=== PATIENT | male | born 1975 | race African-American/Black ===

== ENCOUNTER → 2016-12-16 | Outpatient (CLI) | payer OTHER ==
--- NOTE | 2016-12-16 09:02 | US ---
EXAMINATION TYPE: US liver DATE OF EXAM: 12/16/2016 8:39 AM COMPARISON: 12/05/2014 CLINICAL HISTORY: 41-year-old male B18.2 Hepatitis C. Chronic Hep C, patient has no other complaints at this time. TECHNIQUE: Multiple sonographic images of the right upper quadrant are obtained. FINDINGS: EXAM MEASUREMENTS: Liver Length: 13.7 cm Gallbladder Wall: 0.3 cm CBD: 0.4 cm Right Kidney: 11.4 x 4.5 x 5.7 cm Pancreas: Suboptimal visualization of the pancreatic head and tail secondary to shadowing from bowel gas. Visualized neck and body shows no gross abnormality. Liver: Slight heterogeneous echotexture without focal lesion. Gallbladder: No abnormal gallbladder distention, wall thickening, pericholecystic fluid, or shadowin g calculi. Evidence for sonographic Palomino's sign: No CBD: wnl Right Kidney: No hydronephrosis. IMPRESSION: Slightly heterogeneous liver likely reflects patient's underlying chronic hepatitis C. No sonographic evidence for hepatoma.
== END | disposition home or self-care (01) ==
LOC: RADUSWWP 08:08
PROVIDERS: ATTEND Internal Medicine Gastroenterology
DX: B18.2 Chronic viral hepatitis C (principal)
CPT/HCPCS: 76705

== ENCOUNTER → 2016-12-30 | Outpatient (CLI) | payer OTHER ==
[2016-12-30 12:14] LABS: Basophils # (A) 0.1 k/uL (0-0.2); Basophils % (A) 1 %; CH 33.2; CHCM 34.3; Eosinophils # (A) 0.3 k/uL (0-0.7); Eosinophils % (A) 2 %; HCT 45.7 % (39.0-53.0); HDW 2.51; HGB 15.5 gm/dL (13.0-17.5); Luc # (Auto) 0.29; Luc % (Auto) 3; Lymphocytes % (A) 26 %; MCH 32.8 pg (25.0-35.0); MCHC 33.8 g/dL (31.0-37.0); MCV 97.2 fL (80.0-100.0); Mean Platelet Volume 7.4; Monocytes # (A) 0.8 k/uL (0-1.0); Monocytes % (A) 7 %; Neutrophils # (A) 7.2 k/uL (1.3-7.7); Neutrophils % (A) 62 %; RBC 4.71 m/uL (4.30-5.90); RDW 13.4 % (11.5-15.5); WBC 11.5 k/uL (3.8-10.6); WBC (Perox) 11.34
[2016-12-30 12:15] LABS: INR 1.2 (<1.1); Prothrombin Time 12.2 sec (9.0-12.0)
[2016-12-30 12:51] LABS: Bilirubin, Delta 0.3 mg/dL (0.0-0.2); Total Bilirubin 0.8 mg/dL (0.2-1.3); Total Protein 8.2 g/dL (6.3-8.2)
[2017-01-01 11:53] LABS: HCV Qualitative Result DETECTED (Not detected)
== END | disposition home or self-care (01) ==
LOC: LABWHC1 11:18
PROVIDERS: ATTEND Physician Assistant
DX: B18.2 Chronic viral hepatitis C (principal)
CPT/HCPCS: 36415; 80076; 82105; 85025; 85610; 87522; 87902

== ENCOUNTER 2017-07-05 10:54 | Emergency (ER) | payer OTHER ==
--- NOTE | 2017-07-05 11:42 | XR ---
EXAMINATION TYPE: XR chest 2V DATE OF EXAM: 07/05/2017 COMPARISON: NONE HISTORY: Right-sided chest pain for 2 days. TECHNIQUE: Frontal and lateral views of the chest are obtained. FINDINGS: There is no focal air space opacity, pleural effusion, or pneumothorax seen. The cardiac silhouette size is within normal limits. The osseous structures are intact. IMPRESSION: No acute process.
[2017-07-05] MEDS ORDERED: PROMETHAZ-COD 6.25-10 MG/5 ML 5 ML CUP PO STA (11:45)
[2017-07-05 12:05] VITALS: PULSE 89
--- NOTE | 2017-07-05 12:17 | ED ---
General Adult HPI - General Chief complaint: Upper Respiratory Infection Stated complaint: FLU LIKE SYMPTOMS Time Seen by Provider: 07/05/17 11:18 Source: patient, RN notes reviewed Mode of arrival: ambulatory Limitations: no limitations - History of Present Illness Initial comments: 42-year-old male presents emergency room chief complaint of cough. Patient states he's had a cough for about 4. He is not coughing bouts. Patient states his whole body hurts due to how much she has been coughing. Patient states he is not coughing. There's been no fever or chills. Patient was concerned due to his continued cough so he thought that he should be evaluated. Patient denies any recent fever, chills, shortness of breath, chest pain, back pain, abdominal pain, nausea vomiting, numbness or tingling, dysuria or hematuria, constipation or diarrhea, headaches or visual changes, or any other current symptoms. - Related Data Home Medications Medication Instructions Recorded Confirmed FLUoxetine HCL [PROzac] 40 mg PO DAILY 10/30/14 04/24/16 Albuterol Inhaler [Ventolin Hfa 2 puff INHALATION RT-Q6H PRN 04/24/16 04/24/16 Inhaler] DULoxetine HCL [Cymbalta] 30 mg PO DAILY 04/24/16 04/24/16 Diazepam [Valium] 10 mg PO DAILY PRN 04/24/16 04/24/16 Hydrocodone/Acetaminophen [[place] 1 tab PO Q6H PRN 04/24/16 04/24/16 10-325] Loratadine [Claritin] 10 mg PO DAILY 04/24/16 04/24/16 Metoprolol Succinate (ER) [Toprol 25 mg PO DAILY 04/24/16 04/24/16 XL] Nystatin 100,000Unit/gm Cream 1 applic TOPICAL DAILY 04/24/16 04/24/16 [Mycostatin Cream] OLANZapine [ZyPREXA] 10 mg PO HS 04/24/16 04/24/16 OXcarbazepine [Trileptal] 600 mg PO BID 04/24/16 04/24/16 buPROPion XL [Wellbutrin Xl] 300 mg PO DAILY 04/24/16 04/24/16 Previous Rx's Medication Instructions Recorded Dicyclomine [Bentyl] 20 mg PO QID #20 tablet 04/24/16 Ondansetron Odt [Zofran ODT] 4 mg PO Q8HR PRN #15 tab 04/24/16 Albuterol Inhaler [Ventolin Hfa 1 - 2 puff INHALATION Q4-6H PRN #1 07/05/17 Inhaler] inhaler Promethaz-Cod 6.25-10 mg/5 ml 5 ml PO Q4HR PRN #30 ml 07/05/17 [Phenergan with Codeine] predniSONE 50 mg PO DAILY #5 tab 07/05/17 Allergies Allergy/AdvReac Type Severity Reaction Status Date / Time Penicillins Allergy Anaphylaxis Verified 07/05/17 11:42 Review of Systems ROS Statement: Those systems with pertinent positive or pertinent negative responses have been documented in the HPI. ROS Other: All systems not noted in ROS Statement are negative. Past Medical History Past Medical History: Asthma, Hypertension Additional Past Medical History / Comment(s): diverticulitis and colitis, chronic back pain, hep c History of Any Multi-Drug Resistant Organisms: None Reported Past Surgical History: No Surgical Hx Reported Past Psychological History: No Psychological Hx Reported Smoking Status: Current every day smoker Past Alcohol Use History: None Reported Past Drug Use History: Marijuana General Exam - General Exam Comments Initial Comments: General: The patient is awake and alert, in no distress, and does not appear acutely ill. Eye: Pupils are equal, round and reactive to light, extra-ocular movements are intact; there is normal conjunctiva bilaterally. No signs of icterus. Ears, nose, mouth and throat: There are moist mucous membranes. Neck: The neck is supple, there is no tenderness. Cardiovascular: There is a regular rate and rhythm. No murmur, rub or gallop is appreciated. Respiratory: Lungs are clear to auscultation, respirations are non-labored, breath sounds are equal. No wheezes, stridor, rales, or rhonchi. Gastrointestinal: Soft, non-distended, non-tender abdomen without masses or organomegaly noted. There is no rebound or guarding present. No CVA tenderness. Bowel sounds are unremarkable. Back: There is no tenderness to palpation in the midline. There is no obvious deformity. No rashes noted. Musculoskeletal: Normal ROM, no tenderness, There is no pedal edema. There is no calf tenderness or swelling. Sensation intact. Pulses equal bilaterally 2+. Neurological: CN II-XII intact, There are no obvious motor or sensory deficits. Coordination appears grossly intact. Speech is normal. Skin: Skin is warm and dry and no rashes or lesions are noted. Psychiatric: Cooperative, appropriate mood & affect, normal judgment. Limitations: no limitations Course Vital Signs 07/05/17 07/05/17 11:17 11:24 Temperature 98.7 F Pulse Rate 89 Respiratory 20 20 Rate Blood Pressure 156/98 O2 Sat by Pulse 100 Oximetry Medical Decision Making - Medical Decision Making 42-year-old male presents for appears to be an upper respiratory type infection. Patient continues to have this cough. X-rays reviewed and negative vital signs are stable. This time was a patient steroids and inhaler and cough medication for home. We discussed follow-up return parameters all patient's questions. He stated he understood any significant plan. This time the patient will be discharged home. - Lab Data Lab Results 07/05/17 Range/Units 11:30 Influenza Type A RNA Not Detected (Not Detectd) Influenza Type B (PCR) Not Detected (Not Detectd) - Radiology Data Radiology results: report reviewed, image reviewed Disposition Clinical Impression: Upper respiratory infection Disposition: HOME SELF-CARE Condition: Stable Instructions: Upper Respiratory Infection (ED) Additional Instructions: Please use medication as discussed. Please follow up with family doctor if symptoms have not improved over the next two days. Please return to the emergency room if your symptoms increase or worsen or for any other concerns. Prescriptions: Albuterol Inhaler [Ventolin Hfa Inhaler] 1 - 2 puff INHALATION Q4-6H PRN #1 inhaler PRN Reason: Cough predniSONE 50 mg PO DAILY #5 tab Promethaz-Cod 6.25-10 mg/5 ml [Phenergan with Codeine] 5 ml PO Q4HR PRN #30 ml PRN Reason: Cough Referrals: Kunal Martínez MD [Primary Care Provider] - 1-2 days Time of Disposition: 12:16
[2017-07-05 12:39] VITALS: BP 150/85; RESP 18; TEMP 98.5
== END 2017-07-05 12:40 | disposition home or self-care (01) ==
LOC: EC 10:54
DX: J06.9 Acute upper respiratory infection, unspecified (principal); J45.909 Unspecified asthma, uncomplicated; I10 Essential (primary) hypertension; F17.200 Nicotine dependence, unspecified, uncomplicated; Z79.899 Other long term (current) drug therapy; Z88.0 Allergy status to penicillin
CPT/HCPCS: 71020; 87502; 99283

== ENCOUNTER 2018-01-07 08:00 | Day surgery (SDC) | payer OTHER ==
[2018-01-05 10:31] VITALS: BMI 70.7
[~2018-01-07 08:00] MED LIST: LACTATED RINGERS 1,000 ML IV SCH
[2018-01-07 08:20] VITALS: RESP 16; TEMP 98.4
[2018-01-07] MEDS ORDERED: LIDOCAINE 1% 20 ML VIAL (10MG/ML) FOR IV START INTRADERMA ONE (08:29)
[2018-01-07] MEDS ORDERED: LIDOCAINE 1% INJ 10MG/ML (20 ML MDV) ONE (08:50)
[2018-01-07] MEDS ORDERED: PROPOFOL 10 MG/ML 20 ML VIAL IV ONE (08:50)
--- NOTE | 2018-01-07 08:59 | P.GSHP ---
History of Present Illness H&P Date: 01/07/18 Chief Complaint: GERD, history: Polyps This is a 42-year-old male referred from . Patient presents today for EGD and colonoscopy. He's had history of GERD and colon polyps. Past Medical History Past Medical History: COPD, GERD/Reflux, Hypertension Additional Past Medical History / Comment(s): HX DIVERTICULITIS, COLITIS, DDD, BULDGING DISCS WITH BACK PAIN- USES CANE., HEPATITIS C. History of Any Multi-Drug Resistant Organisms: None Reported Past Surgical History: No Surgical Hx Reported Additional Past Surgical History / Comment(s): COLONOSCOPY Past Anesthesia/Blood Transfusion Reactions: No Reported Reaction Past Psychological History: Anxiety, Bipolar, Depression, Schizophrenia Smoking Status: Former smoker Past Alcohol Use History: None Reported Additional Past Alcohol Use History / Comment(s): QUIT SMOKING 2 MONTHS AGO. SMOKED OVER 20 YEARS. Past Drug Use History: Marijuana Additional Drug Use History / Comment(s): CURRENT MARIJUANA USE. - Past Family History Mother Family Medical History: Cancer Additional Family Medical History / Comment(s): COLON CANCER Medications and Allergies Home Medications Medication Instructions Recorded Confirmed Type FLUoxetine HCL [PROzac] 40 mg PO DAILY 10/30/14 01/07/18 History Hydrocodone/Acetaminophen [[place] 1 tab PO Q6H PRN 04/24/16 01/07/18 History 10-325] Metoprolol Succinate (ER) [Toprol 25 mg PO DAILY 04/24/16 01/07/18 History XL] OXcarbazepine [Trileptal] 600 mg PO BID 04/24/16 01/07/18 History buPROPion XL [Wellbutrin Xl] 300 mg PO DAILY 04/24/16 01/07/18 History Albuterol Inhaler [Ventolin Hfa 1 - 2 puff INHALATION Q4-6H 01/05/18 01/07/18 History Inhaler] OLANZapine [ZyPREXA] 15 mg PO HS 01/05/18 01/07/18 History Allergies Allergy/AdvReac Type Severity Reaction Status Date / Time Penicillins Allergy Anaphylaxis Verified 01/07/18 08:20 Surgical - Exam Vital Signs Temp Pulse Resp BP Pulse Ox 98.4 F 78 16 129/84 95 01/07/18 08:19 01/07/18 08:19 01/07/18 08:19 01/07/18 08:19 01/07/18 08:19 - General well developed, no distress - Eyes PERRL - ENT normal pinna - Neck no masses - Respiratory normal expansion - Cardiovascular Rhythm: regular - Abdomen Abdomen: soft, non tender Assessment and Plan Assessment: GERD, history of colon polyps. We'll perform EGD and colonoscopy
--- NOTE | 2018-01-07 09:18 | P.OP ---
Date of Procedure: 01/07/18 Preoperative Diagnosis: GERD History of colon polyps Postoperative Diagnosis: Antral gastritis Hiatal hernia Esophagitis Normal colon Procedure(s) Performed: EGD Colonoscopy Anesthesia: MAC Surgeon: Sarwat Aguilar Pathology: other (Antrum, esophagus) Condition: stable Disposition: PACU Description of Procedure: T PROCEDURE: The patient was placed on the endoscopy table in the lateral position. Digital rectal examination was performed which revealed no abnormalities. The prostate was symmetrical without nodules. Flexible colonoscope was then placed in the patient's anus and passed throughout the entire colon. The ileocecal valve was visualized. The cecum, ascending, transverse, descending and sigmoid colon were normal. The rectum was normal as well. There were no masses, polyps or diverticula noted in the entire colon. Next, the gastric was placed oropharynx and passed in the esophagus into the stomach. Scope was then placed through the pylorus. The first and second portion of the duodenum appeared normal. Scope was then brought back the antrum and this appeared significantly inflamed and a biopsies performed. The scope was then retroflexed and remainder of the stomach appeared normal. There was a moderate size hiatal hernia. The GE junction was at 38 cm. The distal esophagus was inflamed and a biopsies performed. The proximal esophagus appeared normal. Scope was withdrawn for patient.
[2018-01-07 09:37] VITALS: BP 120/79
[2018-01-07 09:45] VITALS: PULSE 95
[2018-01-07] MEDS ORDERED: ALBUTEROL NEBULIZED 2.5 MG/3 ML INHALATION SCH (12:00)
== END 2018-01-07 09:54 | disposition home or self-care (01) ==
LOC: ORWHC2ENDO 08:00
PROVIDERS: ATTEND Surgery
DX: Z12.11 Encounter for screening for malignant neoplasm of colon (principal); K29.50 Unspecified chronic gastritis without bleeding; K21.0 Gastro-esophageal reflux disease with esophagitis; K44.9 Diaphragmatic hernia without obstruction or gangrene; Z87.19 Personal history of other diseases of the digestive system; Z86.010 Personal history of colon polyps; Z87.891 Personal history of nicotine dependence; J44.9 Chronic obstructive pulmonary disease, unspecified; I10 Essential (primary) hypertension; F41.9 Anxiety disorder, unspecified; F31.9 Bipolar disorder, unspecified; F20.9 Schizophrenia, unspecified; Z79.899 Other long term (current) drug therapy; Z88.0 Allergy status to penicillin
CPT/HCPCS: 94640; 88305; 43239; J2001; J2704; G0105

== ENCOUNTER → 2018-02-02 | Outpatient (CLI) | payer OTHER ==
--- NOTE | 2018-02-02 16:59 | CT ---
EXAMINATION TYPE: CT soft tissue neck w con DATE OF EXAM: 02/02/2018 COMPARISON: NONE HISTORY: Right sided mass above ear marked by BB with tenderness CT DLP: 628.7 mGycm CONTRAST: Patient injected with 100 mL of Isovue 300. TECHNIQUE: Axial images at 3 mm thick sections. Reconstructed images in the coronal plane and sagitt al plane are reviewed. FINDINGS: Limited CT sections are obtained the lung apices. The lung apices appear clear. Osseous s tructures appear unremarkable. At the level marked by the BB posterior to the right ureter is a hypodense structure. This measures a pproximately -40 Hounsfield units. As could be fluid or fat. This area appears to be circumscribed an d measures an estimated 1.1 x 2.2 cm. No enhancement is evident. CT neck: The torus tubarius and fossa of Rosenmuller are normal. Second Helper spaces are normal. Ther e is a very large retention cyst within the inferior right maxillary sinus. Remaining paranasal sinus es appear clear. 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 Mastoid air cells are clear. Parotid glands appear normal and symmetrical. Submandibular glands, are normal. Parapharyngeal spac es are normal. No suspicious adenopathy is evident. The hypopharynx appears within normal limits. Vocal cord level appear symmetrical. Thyroid as visualized is normal. IMPRESSIONS: 1. Cystlike area posterior to the right ear at the area marked by the BB.
== END | disposition home or self-care (01) ==
LOC: RADCTMAIN 15:36
PROVIDERS: ATTEND Family Medicine
DX: R22.1 Localized swelling, mass and lump, neck (principal)
CPT/HCPCS: 70491; Q9967

== ENCOUNTER 2018-02-23 00:51 | Emergency (ER) | payer OTHER ==
[2018-02-23 02:23] LABS: Amphetamine Screen,Urine Not Detected (NotDetected); Barbiturate Screen,Urine Not Detected (NotDetected); Benzodiazepines Screen,Urine Not Detected (NotDetected); Cocaine Screen,Urine Not Detected (NotDetected); Methadone Screen, Urine Not Detected (NotDetected); Opiate Screen,Urine Not Detected (NotDetected); Oxycodone Screen, Urine Not Detected (NotDetected); Phencyclidine Screen,Urine Not Detected (NotDetected); Tricyclic Antidepressant,Urine Not Detected (NotDetected); Urn Cannabinoid Scrn Detected (NotDetected)
[2018-02-23 05:02] VITALS: PULSE 86
--- NOTE | 2018-02-23 05:19 | ED ---
Psych HPI - General Chief Complaint: Psychiatric Symptoms Stated Complaint: suicidal Time Seen by Provider: 02/23/18 01:04 Source: patient Mode of arrival: ambulatory - History of Present Illness MD Complaint: suicidal ideation, feels depressed -: week(s) Associated Psychiatric Symptoms: depression, suicidal ideation History of same: Yes Quality: getting worse Context: recent alcohol abuse Associated Symptoms: denies other symptoms - Related Data Home Medications Medication Instructions Recorded Confirmed FLUoxetine HCL [PROzac] 40 mg PO DAILY 10/30/14 02/23/18 Hydrocodone/Acetaminophen [[place] 1 tab PO Q6H PRN 04/24/16 02/23/18 10-325] Metoprolol Succinate (ER) [Toprol 25 mg PO DAILY 04/24/16 02/23/18 XL] OXcarbazepine [Trileptal] 600 mg PO BID 04/24/16 02/23/18 buPROPion XL [Wellbutrin Xl] 300 mg PO DAILY 04/24/16 02/23/18 Albuterol Inhaler [Ventolin Hfa 1 - 2 puff INHALATION Q4-6H 01/05/18 02/23/18 Inhaler] OLANZapine [ZyPREXA] 15 mg PO HS 01/05/18 02/23/18 Previous Rx's Medication Instructions Recorded Omeprazole 40 mg PO DAILY #60 capsule. 01/07/18 Allergies Allergy/AdvReac Type Severity Reaction Status Date / Time Penicillins Allergy Anaphylaxis Verified 02/23/18 01:00 Review of Systems ROS Statement: Those systems with pertinent positive or pertinent negative responses have been documented in the HPI. ROS Other: All systems not noted in ROS Statement are negative. Constitutional: Denies: fever, chills Respiratory: Denies: cough, dyspnea Cardiovascular: Denies: chest pain, palpitations Gastrointestinal: Denies: abdominal pain, vomiting, diarrhea Genitourinary: Denies: dysuria Neurological: Denies: headache, weakness Psychiatric: Reports: depression, suicidal thoughts. Denies: auditory hallucinations, visual hallucinations, homicidal thoughts Past Medical History Past Medical History: COPD, GERD/Reflux, Hypertension Additional Past Medical History / Comment(s): HX DIVERTICULITIS, COLITIS, DDD, BULDGING DISCS WITH BACK PAIN- USES CANE., HEPATITIS C. History of Any Multi-Drug Resistant Organisms: None Reported Past Surgical History: No Surgical Hx Reported Additional Past Surgical History / Comment(s): COLONOSCOPY Past Anesthesia/Blood Transfusion Reactions: No Reported Reaction Past Psychological History: Anxiety, Bipolar, Depression, Schizophrenia Smoking Status: Former smoker Past Alcohol Use History: None Reported Past Drug Use History: Marijuana - Past Family History Mother Family Medical History: Cancer Additional Family Medical History / Comment(s): COLON CANCER General Exam Limitations: no limitations General appearance: alert, in no apparent distress, appears intoxicated Head exam: Present: atraumatic, normocephalic Eye exam: Present: normal appearance. Absent: scleral icterus, conjunctival injection ENT exam: Present: normal oropharynx Respiratory exam: Present: normal lung sounds bilaterally. Absent: respiratory distress, wheezes, rales, rhonchi, stridor Cardiovascular Exam: Present: regular rate, normal rhythm, normal heart sounds. Absent: systolic murmur, diastolic murmur, rubs, gallop GI/Abdominal exam: Present: soft. Absent: distended, tenderness, guarding, rebound, mass Extremities exam: Present: normal inspection, normal capillary refill. Absent: pedal edema, calf tenderness Back exam: Present: normal inspection Psychiatric exam: Present: depressed, suicidal ideation. Absent: agitated, anxious, flat affect, manic, homicidal ideation Skin exam: Present: warm, dry, intact, normal color. Absent: rash Course Vital Signs 02/23/18 02/23/18 02/23/18 00:57 05:00 13:11 Temperature 98.5 F 98.6 F Pulse Rate 110 H 86 86 Respiratory 20 18 16 Rate Blood Pressure 136/81 157/87 150/89 O2 Sat by Pulse 96 96 98 Oximetry Medical Decision Making - Medical Decision Making The patient is pending evaluation at the time of the shift change. - Lab Data Result diagrams: 02/23/18 06:08 02/23/18 06:08 Lab Results 02/23/18 02/23/18 02/23/18 Range/Units 01:53 06:08 06:08 WBC 8.5 (3.8-10.6) k/uL RBC 4.63 (4.30-5.90) m/uL Hgb 15.6 (13.0-17.5) gm/dL Hct 46.6 (39.0-53.0) % MCV 100.5 H (80.0-100.0) fL MCH 33.6 (25.0-35.0) pg MCHC 33.5 (31.0-37.0) g/dL RDW 13.8 (11.5-15.5) % Plt Count 163 (150-450) k/uL Neutrophils % 50 % Lymphocytes % 35 % Monocytes % 8 % Eosinophils % 3 % Basophils % 1 % Neutrophils # 4.2 (1.3-7.7) k/uL Lymphocytes # 3.0 (1.0-4.8) k/uL Monocytes # 0.7 (0-1.0) k/uL Eosinophils # 0.3 (0-0.7) k/uL Basophils # 0.1 (0-0.2) k/uL Macrocytosis Slight Sodium 142 (137-145) mmol/L Potassium 4.2 (3.5-5.1) mmol/L Chloride 105 (98-107) mmol/L Carbon Dioxide 19 L (22-30) mmol/L Anion Gap 18 mmol/L BUN 13 (9-20) mg/dL Creatinine 0.98 (0.66-1.25) mg/dL Est GFR (CKD-EPI)AfAm >90 (>60 ml/min/1.73 sqM) Est GFR (CKD-EPI)NonAf >90 (>60 ml/min/1.73 sqM) Glucose 101 H (74-99) mg/dL Calcium 9.5 (8.4-10.2) mg/dL Urine Opiates Screen Not Detected (NotDetected) Ur Oxycodone Screen Not Detected (NotDetected) Urine Methadone Screen Not Detected (NotDetected) Ur Propoxyphene Screen Not Detected (NotDetected) Ur Barbiturates Screen Not Detected (NotDetected) U Tricyclic Antidepress Not Detected (NotDetected) Ur Phencyclidine Scrn Not Detected (NotDetected) Ur Amphetamines Screen Not Detected (NotDetected) U Methamphetamines Scrn Not Detected (NotDetected) U Benzodiazepines Scrn Not Detected (NotDetected) Urine Cocaine Screen Not Detected (NotDetected) U Marijuana (THC) Screen Detected H (NotDetected) Disposition Clinical Impression: Alcohol intoxication Disposition: HOME SELF-CARE Condition: Good Is patient prescribed a controlled substance at d/c from ED?: No Referrals: Elizabeth Mohr DO [Primary Care Provider] - 1-2 days
[2018-02-23 06:17] LABS: Basophils # (A) 0.1 k/uL (0-0.2); Basophils % (A) 1 %; Eosinophils # (A) 0.3 k/uL (0-0.7); Eosinophils % (A) 3 %; HCT 46.6 % (39.0-53.0); HGB 15.6 gm/dL (13.0-17.5); Lymphocytes % (A) 35 %; MCH 33.6 pg (25.0-35.0); MCHC 33.5 g/dL (31.0-37.0); MCV 100.5 fL (80.0-100.0); Macrocytosis Slight; Mean Platelet Volume 7.4; Monocytes # (A) 0.7 k/uL (0-1.0); Monocytes % (A) 8 %; Neutrophils # (A) 4.2 k/uL (1.3-7.7); Neutrophils % (A) 50 %; Platelet Count 163 k/uL (150-450); RBC 4.63 m/uL (4.30-5.90); RDW 13.8 % (11.5-15.5); WBC 8.5 k/uL (3.8-10.6)
[2018-02-23 06:26] LABS: Anion Gap 18 mmol/L; Blood Urea Nitrogen 13 mg/dL (9-20); Calcium 9.5 mg/dL (8.4-10.2); Carbon Dioxide 19 mmol/L (22-30); Chloride 105 mmol/L (98-107); Glucose 101 mg/dL (74-99); Potassium 4.2 mmol/L (3.5-5.1); Sodium 142 mmol/L (137-145)
[2018-02-23] MEDS ORDERED: ACETAMINOPHEN TAB 325 MG TAB PO STA (13:02)
[2018-02-23 13:12] VITALS: BP 150/89; RESP 16; TEMP 98.6
== END 2018-02-23 13:12 | disposition home or self-care (01) ==
LOC: EC 00:51
DX: F10.129 Alcohol abuse with intoxication, unspecified (principal); R45.851 Suicidal ideations; J44.9 Chronic obstructive pulmonary disease, unspecified; I10 Essential (primary) hypertension; F20.9 Schizophrenia, unspecified; F31.9 Bipolar disorder, unspecified; F41.9 Anxiety disorder, unspecified; Z88.0 Allergy status to penicillin; Z79.899 Other long term (current) drug therapy; Z87.891 Personal history of nicotine dependence
CPT/HCPCS: 36415; 80048; 80306; 82075; 85025; 99285

== ENCOUNTER 2020-09-10 13:45 | Observation (INO) | payer OTHER ==
[2020-09-10] MEDS ORDERED: ONDANSETRON 4 MG/2 ML VIAL IVP STA (14:25)
[2020-09-10] MEDS ORDERED: SODIUM CHLORIDE 0.9% 1,000 ML IV ONE ×2 (14:26→15:44)
[2020-09-10] MEDS ORDERED: KETOROLAC 15 MG/ML 1 ML VIAL IVP STA (14:26)
--- NOTE | 2020-09-10 14:28 | ED ---
General Adult HPI - General Chief complaint: Abdominal Pain Stated complaint: Abd Pain, Vomiting Time Seen by Provider: 09/10/20 13:50 Source: patient, RN notes reviewed, old records reviewed Mode of arrival: wheelchair Limitations: no limitations - History of Present Illness Initial comments: This is a 45-year-old male who presents emergency department with past medical history significant for ulcerative colitis and articulates. Patient states this morning he woke up with diffuse abdominal pain and vomiting. Patient states she's also little bit diarrhea. Patient denies any fever chills. Patient states he was admitted the hospital in [place] one month ago for similar symptoms. Patient denies any chest pain patient denies any shortness of breath. Patient denies any palpitation. Patient denies any lightheadedness or dizziness. Patient can't remember what the diagnosis was from 1 month ago when he was in the hospital. - Related Data Home Medications Medication Instructions Recorded Confirmed Hydrocodone/Acetaminophen [[place] 1 tab PO TID PRN 04/24/16 09/10/20 10-325] Budesonide/Formoterol Fumarate 2 puff INHALATION RT-BID 09/10/20 09/10/20 [Symbicort 160-4.5 Mcg Inhaler] Loratadine 10 mg PO DAILY 09/10/20 09/10/20 Losartan Potassium [Cozaar] 25 mg PO DAILY 09/10/20 09/10/20 Montelukast Sodium [Singulair] 10 mg PO HS 09/10/20 09/10/20 Omeprazole [PriLOSEC] 20 mg PO DAILY 09/10/20 09/10/20 Promethazine 6.25MG/5Ml [Phenergan 12.5 mg PO Q8H PRN 09/10/20 09/10/20 Syrup] tiZANidine HCL 4 mg PO HS 09/10/20 09/10/20 Allergies Allergy/AdvReac Type Severity Reaction Status Date / Time Penicillins Allergy Anaphylaxis Verified 09/10/20 15:31 Review of Systems ROS Statement: Those systems with pertinent positive or pertinent negative responses have been documented in the HPI. ROS Other: All systems not noted in ROS Statement are negative. Past Medical History Past Medical History: COPD, GERD/Reflux, Hypertension Additional Past Medical History / Comment(s): HX DIVERTICULITIS, COLITIS, DDD, BULDGING DISCS WITH BACK PAIN- USES CANE., HEPATITIS C. History of Any Multi-Drug Resistant Organisms: None Reported Past Surgical History: No Surgical Hx Reported Additional Past Surgical History / Comment(s): COLONOSCOPY Past Anesthesia/Blood Transfusion Reactions: No Reported Reaction Past Psychological History: Anxiety, Bipolar, Depression, Schizophrenia Smoking Status: Current every day smoker Past Alcohol Use History: None Reported Past Drug Use History: Marijuana - Past Family History Mother Family Medical History: Cancer Additional Family Medical History / Comment(s): COLON CANCER General Exam - General Exam Comments Initial Comments: GENERAL: Patient is well-developed and well-nourished. Patient is nontoxic and well- hydrated and is in mild distress. ENT: Neck is soft and supple. No significant lymphadenopathy is noted. Oropharynx is clear. Moist mucous membranes. Neck has full range of motion without eliciting any pain. EYES: The sclera were anicteric and conjunctiva were pink and moist. Extraocular movements were intact and pupils were equal round and reactive to light. Eyelids were unremarkable. PULMONARY: Unlabored respirations. Good breath sounds bilaterally. No audible rales rhonchi or wheezing was noted. CARDIOVASCULAR: There is a regular rate and rhythm without any murmurs gallops or rubs. ABDOMEN: No point tenderness. No rebound tenderness. Patient has slight diffuse abdominal tenderness. SKIN: Skin is clear with no lesions or rashes and otherwise unremarkable. NEUROLOGIC: Patient is alert and oriented x3. Cranial nerves II through XII are grossly intact. Motor and sensory are also intact. Normal speech, volume and content. Symmetrical smile. MUSCULOSKELETAL: Normal extremities with adequate strength and full range of motion. No lower extremity swelling or edema. No calf tenderness. LYMPHATICS: No significant lymphadenopathy is noted PSYCHIATRIC: Normal psychiatric evaluation. Limitations: no limitations Course Vital Signs 09/10/20 13:49 Temperature 97.8 F Pulse Rate 84 Respiratory 16 Rate Blood Pressure 145/95 O2 Sat by Pulse 99 Oximetry Medical Decision Making - Medical Decision Making Patient's CT of the abdomen and pelvis shows diffuse colitis. I will back into reevaluate the patient he still was complaining of quite a bit of pain still feels like go home at this time. I spoke with [facility] they agreed to admit the patient admitted the patient I wrote admitting orders. I consult Dr. Aguilar because patient states he saw Dr. Aguilar in the past. - Lab Data Result diagrams: 09/10/20 14:33 09/10/20 14:39 Lab Results 09/10/20 09/10/20 09/10/20 Range/Units 14:33 14:33 14:39 WBC 11.9 H (3.8-10.6) k/uL RBC 4.98 (4.30-5.90) m/uL Hgb 16.7 (13.0-17.5) gm/dL Hct 50.8 (39.0-53.0) % MCV 102.1 H (80.0-100.0) fL MCH 33.5 (25.0-35.0) pg MCHC 32.9 (31.0-37.0) g/dL RDW 13.1 (11.5-15.5) % Plt Count 246 (150-450) k/uL MPV 8.2 Neutrophils % 84 % Lymphocytes % 11 % Monocytes % 4 % Eosinophils % 0 % Basophils % 0 % Neutrophils # 10.0 H (1.3-7.7) k/uL Lymphocytes # 1.3 (1.0-4.8) k/uL Monocytes # 0.4 (0-1.0) k/uL Eosinophils # 0.0 (0-0.7) k/uL Basophils # 0.0 (0-0.2) k/uL Macrocytosis Slight Sodium 133 L (137-145) mmol/L Potassium 4.8 (3.5-5.1) mmol/L Chloride 107 (98-107) mmol/L Carbon Dioxide 20 L (22-30) mmol/L Anion Gap 6 mmol/L BUN 12 (9-20) mg/dL Creatinine 0.79 (0.66-1.25) mg/dL Est GFR (CKD-EPI)AfAm >90 (>60 ml/min/1.73 sqM) Est GFR (CKD-EPI)NonAf >90 (>60 ml/min/1.73 sqM) Glucose 128 H (74-99) mg/dL Calcium 9.9 (8.4-10.2) mg/dL Total Bilirubin 0.6 (0.2-1.3) mg/dL AST 68 H (17-59) U/L ALT 111 H (4-49) U/L Alkaline Phosphatase 82 (38-126) U/L Total Protein 8.2 (6.3-8.2) g/dL Albumin 4.5 (3.5-5.0) g/dL Amylase 75 (30-110) U/L Lipase 88 (23-300) U/L Urine Color Yellow Urine Appearance Clear (Clear) Urine pH 5.5 (5.0-8.0) Ur Specific [place] 1.021 (1.001-1.035) Urine Protein Negative (Negative) Urine Glucose (UA) Negative (Negative) Urine Ketones Trace H (Negative) Urine Blood Negative (Negative) Urine Nitrite Negative (Negative) Urine Bilirubin Negative (Negative) Urine Urobilinogen <2.0 (<2.0) mg/dL Ur Leukocyte Esterase Negative (Negative) Urine Opiates Screen Not Detected (NotDetected) Ur Oxycodone Screen Not Detected (NotDetected) Urine Methadone Screen Not Detected (NotDetected) Ur Propoxyphene Screen Not Detected (NotDetected) Ur Barbiturates Screen Not Detected (NotDetected) U Tricyclic Antidepress Not Detected (NotDetected) Ur Phencyclidine Scrn Not Detected (NotDetected) Ur Amphetamines Screen Not Detected (NotDetected) U Methamphetamines Scrn Not Detected (NotDetected) U Benzodiazepines Scrn Detected H (NotDetected) Urine Cocaine Screen Not Detected (NotDetected) U Marijuana (THC) Screen Detected H (NotDetected) Disposition Clinical Impression: Acute colitis Disposition: ADMITTED IP TO THIS [facility] Referrals: None,Stated [Primary Care Provider] - 1-2 days Time of Disposition: 15:44
[2020-09-10 14:50] LABS: Appearance,Urine Clear (Clear); Basophils % (A) 0 %; Bilirubin,Urine Negative (Negative); Blood,Urine Negative (Negative); Color,Urine Yellow; Eosinophils % (A) 0 %; Glucose,Urine (UA) Negative (Negative); HCT 50.8 % (39.0-53.0); HGB 16.7 gm/dL (13.0-17.5); Ketones,Urine Trace (Negative); Leukocyte Esterase,Urine Negative (Negative); Lymphocytes # (A) 1.3 k/uL (1.0-4.8); Lymphocytes % (A) 11 %; MCH 33.5 pg (25.0-35.0); MCHC 32.9 g/dL (31.0-37.0); MCV 102.1 fL (80.0-100.0); Macrocytosis Slight; Mean Platelet Volume 8.2; Monocytes # (A) 0.4 k/uL (0-1.0); Monocytes % (A) 4 %; Neutrophils % (A) 84 %; Nitrite,Urine Negative (Negative); PH, Urine 5.5 (5.0-8.0); Platelet Count 246 k/uL (150-450); Protein,Urine Negative (Negative); RBC 4.98 m/uL (4.30-5.90); RDW 13.1 % (11.5-15.5); Specific Gravity,Urine 1.021 (1.001-1.035); Urobilinogen,Urine <2.0 mg/dL (<2.0); WBC 11.9 k/uL (3.8-10.6)
[2020-09-10 14:58] LABS: ALT 111 U/L (4-49); AST 68 U/L (17-59); African American GFR (CKD) >90 (>60 ml/min/1.73 sqM); Albumin 4.5 g/dL (3.5-5.0); Alkaline Phosphatase 82 U/L (38-126); Amylase 75 U/L (30-110); Anion Gap 6 mmol/L; Blood Urea Nitrogen 12 mg/dL (9-20); Calcium 9.9 mg/dL (8.4-10.2); Carbon Dioxide 20 mmol/L (22-30); Chloride 107 mmol/L (98-107); Glucose 128 mg/dL (74-99); Lipase 88 U/L (23-300); Non-African American GFR(CKD) >90 (>60 ml/min/1.73 sqM); Potassium 4.8 mmol/L (3.5-5.1); Sodium 133 mmol/L (137-145); Total Bilirubin 0.6 mg/dL (0.2-1.3); Total Protein 8.2 g/dL (6.3-8.2)
[2020-09-10 14:59] LABS: Cocaine Screen,Urine Not Detected (NotDetected); Opiate Screen,Urine Not Detected (NotDetected); Phencyclidine Screen,Urine Not Detected (NotDetected); Urn Cannabinoid Scrn Detected (NotDetected)
[2020-09-10 15:00] LABS: Amphetamine Screen,Urine Not Detected (NotDetected); Barbiturate Screen,Urine Not Detected (NotDetected); Benzodiazepines Screen,Urine Detected (NotDetected); Methadone Screen, Urine Not Detected (NotDetected); Oxycodone Screen, Urine Not Detected (NotDetected); Tricyclic Antidepressant,Urine Not Detected (NotDetected)
--- NOTE | 2020-09-10 15:13 | CT ---
EXAMINATION TYPE: CT abdomen pelvis w con DATE OF EXAM: 09/10/2020 COMPARISON: CT abdomen and pelvis October 30, 2014 HISTORY: Severe stomach pains CT DLP: 1404 mGycm, Automated Exposure Control for Dose Reduction was Utilized. CONTRAST: CT scan of the abdomen and pelvis is performed with oral and with IV Contrast, patient injected with 100 mL of Isovue 300. FINDINGS: LUNG BASES: Dependent atelectasis bilateral bases. There are nodules or nodular consolidations bilate rally now present. For reference 1.2 x 0.7 cm spiculated lesion medial right lung base axial image 17 and larger 2.3 x 1.2 cm nodule or nodular consolidation left lower lobe axial image 16 LIVER/GB: Visualized liver is low dense relative to spleen consistent with diffuse fatty infiltration . PANCREAS: No significant abnormality is seen. SPLEEN: No significant abnormality is seen. ADRENALS: No significant abnormality is seen. KIDNEYS: Symmetric cortical medullary uptake and excretion without concerning renal mass or hydroneph rosis seen bilaterally. BOWEL: Suboptimal evaluation without enteric contrast. Moderate to severe gastric wall thickening is present diffusely. There is additional moderate wall thickening throughout the majority of visualized colon. Incidental normal-appearing appendix from cecum. PROSTATE/SEMINAL VESICLES: No gross abnormality seen. LYMPH NODES: No greater than 1cm abdominal or pelvic lymph nodes are appreciated. OSSEOUS STRUCTURES: [id number] disc space narrowing with vacuum disc phenomenon lumbosacral j unction. OTHER: No significant additional abnormality is seen. IMPRESSION: 1. Suspect new mild to moderate fairly diffuse but uncomplicated acute colitis, correlate clinically. Differential includes infectious and inflammatory etiologies including pseudomembranous colitis. The re is fairly moderate diffuse gastritis redemonstrated. 2. New bilateral posterior basilar nodules or nodular consolidations, correlate clinically differenti al includes infectious process versus neoplasm.
[2020-09-10] MEDS ORDERED: methylPREDNISolone SOD SUCCI 125 MG/2 ML VIAL IV STA (15:50)
[2020-09-10] MEDS ORDERED: HYDROmorphone 0.5 MG/0.5 ML SYRINGE IVP STA (15:51)
[2020-09-10] MEDS ORDERED: PROMETHAZINE HCL 6.25 MG/5 ML CUP PO PRN (17:24)
[2020-09-10] MEDS ORDERED: HYDROcodone/APAP 10-325MG 1 EACH TAB PO PRN (17:24)
[2020-09-10] MEDS ORDERED: ONDANSETRON 4 MG/2 ML VIAL IVP PRN (17:25)
[2020-09-10] MEDS: HYDROmorphone 1 MG/ML 1 ML SYRINGE IVP PRN (17:33)
[2020-09-10] MEDS: PANTOPRAZOLE 40 MG/10 ML VIAL IVP SCH ×2 (17:34→20:34)
[2020-09-10] MEDS: ONDANSETRON 4 MG/2 ML VIAL IVP PRN ×2 (17:34→23:21)
[2020-09-10] MEDS ORDERED: TEMAZEPAM 15 MG CAP PO PRN (17:59)
[2020-09-10] MEDS ORDERED: ACETAMINOPHEN TAB 500 MG TAB PO PRN (17:59)
[2020-09-10] MEDS ORDERED: cloNIDine HCL 0.1 MG TAB PO PRN (17:59)
[2020-09-10] MEDS ORDERED: ALPRAZolam 0.25 MG TAB PO PRN (17:59)
[2020-09-10] MEDS ORDERED: LEVOFLOXACIN 500MG-D5W PMX 500 MG in DEXTROSE/WATER 1 100ML.BAG IVPB SCH (18:00)
[2020-09-10] MEDS: SYMBICORT 160-4.5 MCG INHALER INHALATION SCH (19:07)
--- NOTE | 2020-09-10 19:56 | HP ---
HISTORY AND PHYSICAL CHIEF COMPLAINTS: Abdominal pain and vomiting as well as diarrhea. HISTORY OF PRESENT ILLNESS: This 45-year-old gentleman with a past medical history of apparent colitis, COPD, GERD, hypertension, history of diverticulitis, anxiety, bipolar, depression, not being followed by any primary physician in the outpatient setting, was complaining of severe abdominal pain which was felt in the lower part and diffusely, associated with some nausea and some diarrhea. The patient came to [facility] and was admitted for further evaluation and treatment. CT scan showed mild to moderate diffuse uncomplicated colitis. There is no history of any fever or rigors. No history of headache, loss of consciousness, seizures. Gastroenterology evaluation has been sought. White count is elevated at 11.9 and sodium is 133. AST is 68 and ALT is 111. PAST MEDICAL HISTORY: COPD, GERD, hypertension, history of diverticulitis, colitis, history of anxiety, bipolar, depression. HOME MEDICATIONS: Tizanidine 4 mg at bedtime, Singulair, Phenergan, Prilosec, Cozaar, Symbicort, loratadine, [place]. ALLERGIES: PENICILLIN. FAMILY HISTORY: History of colon cancer in the family. SOCIAL HISTORY: Previous history of smoking. Occasional THC. REVIEW OF SYSTEMS: ENT: No diminished hearing. No diminished vision. CARDIOVASCULAR SYSTEM: No angina, palpitations. RESPIRATORY SYSTEM: As mentioned earlier. GI: As mentioned earlier. : No dysuria or retention. NERVOUS SYSTEM: No numbness, weakness. ALLERGY/IMMUNOLOGY: No asthma, hayfever. MUSCULOSKELETAL: As mentioned earlier. HEMATOLOGY/ONCOLOGY: No history of anemia. ENDOCRINE: No history of diabetes, hypothyroidism. CONSTITUTIONAL: As mentioned earlier. DERMATOLOGY: Negative. RHEUMATOLOGY: Negative. PSYCHIATRY: As mentioned earlier. PHYSICAL EXAMINATION: Patient alert and oriented x3. Pulse 74, blood pressure 179/106, respiration 18, temperature 97.7, pulse ox 99% on room air. HEENT: Conjunctivae normal. Oral mucosa moist. NECK: No jugular venous distention. No carotid bruit. No lymph node enlargement. CARDIOVASCULAR SYSTEM: S1, S2 muffled. RESPIRATORY SYSTEM: Breath sounds diminished at the bases. No rhonchi. No crackles. ABDOMEN: Soft. Mild diffuse tenderness. No guarding. No rigidity. No mass palpable. Bowel sounds diminished. LEGS: No edema. No swelling. NERVOUS SYSTEM: Higher functions as mentioned earlier. Moves all 4 limbs. No focal motor or sensory deficit. LYMPHATICS: No lymph node palpable in neck, axillae or groin. SKIN: No ulcer, rash, bleeding. JOINTS: No active deforming arthropathy. LABS: WBC 11.9, MCV 102.1, sodium 133. AST and ALT are elevated. ASSESSMENT: 1. Diffuse abdominal pain with possible acute colitis. 2. Increased white count. 3. Increased mean corpuscular volume. 4. Hyponatremia. 5. Elevated AST and ALT; possibly mild hepatitis. 6. Positive tetrahydrocannabinol in the urine. 7. History of chronic obstructive pulmonary disease. 8. Gastroesophageal reflux disease. 9. Hypertension. 10.History of colitis. 11.History of anxiety, bipolar, depression, schizophrenia. 12.History of nicotine dependence. RECOMMENDATIONS AND DISCUSSION: I recommend to continue current medications, continue with the monitoring, symptomatic treatment. Continue broad-spectrum IV antibiotics. The patient previously had an EGD. Biopsy reports are not available. Other than that, we will continue to monitor. Empiric antibiotics. Gastroenterology evaluation also will be sought. Guarded prognosis because of multiple complex medical issues. Further recommendations to follow. I also recommend that the patient follow up with a primary physician in the outpatient setting. MMODL / IJN: [id number] /
[2020-09-10] MEDS: HYDROmorphone 0.5 MG/0.5 ML SYRINGE IVP PRN ×2 (20:26→23:22)
[2020-09-10] MEDS: HEPARIN SODIUM,PORCINE 5,000 UNIT/ML 1 ML VIAL SQ SCH (20:28)
[2020-09-10] MEDS: metroNIDAZOLE-NS PMX 500 MG in SALINE 1 100ML.BAG IVPB SCH (20:28)
[2020-09-10] MEDS: cloNIDine HCL 0.1 MG TAB PO SCH (20:34)
[2020-09-10] MEDS ORDERED: MONTELUKAST 10 MG TAB PO SCH (21:00)
[2020-09-10] MEDS ORDERED: tiZANidine 4 MG TAB PO SCH (21:00)
[2020-09-10] MEDS: methylPREDNISolone SOD SUCCI 125 MG/2 ML VIAL IV SCH (23:21)
[2020-09-11] MEDS: HYDROmorphone 0.5 MG/0.5 ML SYRINGE IVP PRN ×2 (02:47→05:58)
[2020-09-11] MEDS: metroNIDAZOLE-NS PMX 500 MG in SALINE 1 100ML.BAG IVPB SCH ×2 (02:51→10:54)
[2020-09-11] MEDS: methylPREDNISolone SOD SUCCI 125 MG/2 ML VIAL IV SCH ×2 (05:57→12:07)
[2020-09-11 07:45] LABS: Basophils % (A) 0 %; Eosinophils % (A) 0 %; HCT 46.6 % (39.0-53.0); HGB 15.3 gm/dL (13.0-17.5); Lymphocytes % (A) 10 %; MCH 33.7 pg (25.0-35.0); MCHC 32.8 g/dL (31.0-37.0); MCV 102.7 fL (80.0-100.0); Macrocytosis Slight; Mean Platelet Volume 7.6; Monocytes # (A) 0.2 k/uL (0-1.0); Monocytes % (A) 2 %; Neutrophils # (A) 8.3 k/uL (1.3-7.7); Neutrophils % (A) 87 %; Platelet Count 230 k/uL (150-450); RBC 4.53 m/uL (4.30-5.90); RDW 12.6 % (11.5-15.5); WBC 9.6 k/uL (3.8-10.6)
[2020-09-11 07:48] VITALS: BP 112/74; PULSE 89; RESP 16; TEMP 97.9
[2020-09-11 07:57] LABS: ALT 76 U/L (4-49); AST 39 U/L (17-59); African American GFR (CKD) >90 (>60 ml/min/1.73 sqM); Albumin 3.7 g/dL (3.5-5.0); Alkaline Phosphatase 56 U/L (38-126); Anion Gap 6 mmol/L; Blood Urea Nitrogen 12 mg/dL (9-20); Calcium 8.8 mg/dL (8.4-10.2); Carbon Dioxide 21 mmol/L (22-30); Chloride 109 mmol/L (98-107); Glucose 152 mg/dL (74-99); Non-African American GFR(CKD) >90 (>60 ml/min/1.73 sqM); Potassium 4.7 mmol/L (3.5-5.1); Sodium 136 mmol/L (137-145); Total Bilirubin 0.5 mg/dL (0.2-1.3); Total Protein 6.9 g/dL (6.3-8.2)
[2020-09-11] MEDS: SYMBICORT 160-4.5 MCG INHALER INHALATION SCH (08:08)
[2020-09-11] MEDS ORDERED: LORATADINE 10 MG TAB PO SCH (09:00)
[2020-09-11] MEDS ORDERED: LOSARTAN 25 MG TAB PO SCH (09:00)
[2020-09-11] MEDS: PANTOPRAZOLE 40 MG/10 ML VIAL IVP SCH (09:04)
[2020-09-11] MEDS: HEPARIN SODIUM,PORCINE 5,000 UNIT/ML 1 ML VIAL SQ SCH (09:04)
[2020-09-11] MEDS: HYDROmorphone 1 MG/ML 1 ML SYRINGE IVP PRN (09:05)
[2020-09-11] MEDS: cloNIDine HCL 0.1 MG TAB PO SCH (09:05)
--- NOTE | 2020-09-12 06:22 | DS ---
DISCHARGE SUMMARY DATE OF SERVICE: 09/11/2020 DIAGNOSIS: 1. Diffuse abdominal pain with possible acute colitis. 2. Increased WBC. 3. Increased MCV. 4. Hyponatremia. 5. Number elevated AST, ALT, possibly mild hepatitis. 6. Positive THC. 7. Chronic obstructive pulmonary disease. 8. Gastroesophageal reflux disease. 9. Hypertension. 10.History of colitis. 11.Anxiety, bipolar, depression, schizophrenia. 12.History of nicotine dependence. The patient LEFT THE HOSPITAL AGAINST MEDICAL ADVICE. HISTORY OF PRESENT ILLNESS: This is a 45-year-old gentleman admitted with multiple medical issues as mentioned earlier, but however the patient LEFT THE HOSPITAL AGAINST MEDICAL ADVICE. Please refer to the previous staff notes and H and P and other notes for further information. Prognosis guarded. MMODL / IJN: [id number] /
== END 2020-09-11 12:12 ==
LOC: EC 13:45 → 1SOBS 15:51
PROVIDERS: ADMIT Hospitalist; ATTEND Hospitalist
DX: R10.9 Unspecified abdominal pain (principal); D72.829 Elevated white blood cell count, unspecified; E87.1 Hypo-osmolality and hyponatremia; R74.01 Elevation of levels of liver transaminase levels; J44.9 Chronic obstructive pulmonary disease, unspecified; K21.9 Gastro-esophageal reflux disease without esophagitis; I10 Essential (primary) hypertension; F41.9 Anxiety disorder, unspecified; F31.9 Bipolar disorder, unspecified; F20.9 Schizophrenia, unspecified; F17.200 Nicotine dependence, unspecified, uncomplicated; Z53.29 Procedure and treatment not carried out because of patient's decision for other reasons; Z80.0 Family history of malignant neoplasm of digestive organs; R11.11 Vomiting without nausea; R19.7 Diarrhea, unspecified; Z87.19 Personal history of other diseases of the digestive system
CPT/HCPCS: 96361 ×2; 96365; 96366 ×2; 96367; 96372 ×2; 96375 ×2; 96376 ×2; 99285; 36415; 94640 ×2; 80053 ×2; 85652; 82150; 83690; 85025 ×2; 86140; 81003; 80306; 87635; 74177; G0378 ×2; J1644 ×2; J2930 ×2; J2405; J1956; J1170 ×4; J1885; C9113 ×2; Q9967

== ENCOUNTER 2020-09-15 09:11 | Inpatient (IN) | payer OTHER ==
[2020-09-15] MEDS ORDERED: ONDANSETRON 4 MG/2 ML VIAL IVP STA (09:22)
[2020-09-15] MEDS ORDERED: HYDROmorphone 1 MG/ML 1 ML SYRINGE IVP STA (09:22)
[2020-09-15] MEDS ORDERED: SODIUM CHLORIDE 0.9% 2,000 ML IV STA (09:22)
--- NOTE | 2020-09-15 09:25 | ED ---
Abdominal Pain HPI - General Chief Complaint: Abdominal Pain Stated Complaint: Abd Pain Time Seen by Provider: 09/15/20 09:17 Source: patient, RN notes reviewed Mode of arrival: ambulatory Limitations: no limitations - History of Present Illness Initial Comments: This a 45-year-old male presents emergency Department chief complaint severe abdominal pain worsens morning. Patient was admitted on September 10 and states that he left AGAINST MEDICAL ADVICE complaints he did not want to wait any longer. Patient states he writes his decision. He states the pain is so severe his lower and upper abdomen. Patient does state that he has a history of GI i ssues including ulcerative colitis she's had prior EGDs and has seen Dr. Aguilar, no recent GI evaluation. Patient denies fevers or chills. Admits to severe pain, nausea and vomiting slight diarrhea no significant melena hematochezia. Denies chest pain shortness of breath MD Complaint: abdominal pain - Related Data Home Medications Medication Instructions Recorded Confirmed Hydrocodone/Acetaminophen [[place] 1 tab PO TID PRN 04/24/16 09/15/20 10-325] Budesonide/Formoterol Fumarate 2 puff INHALATION RT-BID 09/10/20 09/15/20 [Symbicort 160-4.5 Mcg Inhaler] Loratadine 10 mg PO DAILY 09/10/20 09/15/20 Losartan Potassium [Cozaar] 25 mg PO DAILY 09/10/20 09/15/20 Montelukast Sodium [Singulair] 10 mg PO HS 09/10/20 09/15/20 Omeprazole [PriLOSEC] 20 mg PO DAILY 09/10/20 09/15/20 Promethazine 6.25MG/5Ml [Phenergan 12.5 mg PO Q8H PRN 09/10/20 09/15/20 Syrup] tiZANidine HCL 4 mg PO HS 09/10/20 09/15/20 Allergies Allergy/AdvReac Type Severity Reaction Status Date / Time Penicillins Allergy Anaphylaxis Verified 09/15/20 09:53 Review of Systems ROS Statement: Those systems with pertinent positive or pertinent negative responses have been documented in the HPI. ROS Other: All systems not noted in ROS Statement are negative. Past Medical History Past Medical History: COPD, GERD/Reflux, Hypertension Additional Past Medical History / Comment(s): HX DIVERTICULITIS, COLITIS, DDD, BULDGING DISCS WITH BACK PAIN- USES CANE., HEPATITIS C. History of Any Multi-Drug Resistant Organisms: None Reported Past Surgical History: No Surgical Hx Reported Additional Past Surgical History / Comment(s): COLONOSCOPY Past Anesthesia/Blood Transfusion Reactions: No Reported Reaction Past Psychological History: Anxiety, Bipolar, Depression, Schizophrenia Smoking Status: Current every day smoker Past Alcohol Use History: None Reported Past Drug Use History: Marijuana - Past Family History Mother Family Medical History: Cancer Additional Family Medical History / Comment(s): COLON CANCER General Exam Limitations: no limitations General appearance: alert, in no apparent distress, other (Patient appears to be uncomfortable) Head exam: Present: atraumatic, normocephalic, normal inspection Respiratory exam: Present: normal lung sounds bilaterally. Absent: respiratory distress, wheezes, rales, rhonchi, stridor Cardiovascular Exam: Present: regular rate, normal rhythm, normal heart sounds. Absent: systolic murmur, diastolic murmur, rubs, gallop, clicks GI/Abdominal exam: Present: soft, tenderness, guarding (Voluntary), normal bowel sounds. Absent: distended, rebound, rigid Back exam: Absent: CVA tenderness (R), CVA tenderness (L) Neurological exam: Present: alert, oriented X3 Skin exam: Present: warm, dry, intact, normal color. Absent: rash Course Vital Signs 09/15/20 09/15/20 09:12 10:15 Temperature 98.0 F Pulse Rate 75 67 Respiratory 18 20 Rate Blood Pressure 155/69 159/103 O2 Sat by Pulse 97 98 Oximetry Medical Decision Making - Medical Decision Making 45-year-old for abdominal pain labs unremarkable there is no evidence of free air today. CT prior show severe colitis. Case discussed with Dr. Mckenna accepts admission with consult to GI. - Lab Data Result diagrams: 09/15/20 09:46 09/15/20 09:46 Lab Results 09/15/20 09/15/20 09/15/20 Range/Units 09:46 09:46 09:46 WBC 9.0 (3.8-10.6) k/uL RBC 4.89 (4.30-5.90) m/uL Hgb 16.7 (13.0-17.5) gm/dL Hct 48.5 (39.0-53.0) % MCV 99.1 (80.0-100.0) fL MCH 34.1 (25.0-35.0) pg MCHC 34.4 (31.0-37.0) g/dL RDW 12.5 (11.5-15.5) % Plt Count 251 (150-450) k/uL MPV 7.3 Neutrophils % 67 % Lymphocytes % 22 % Monocytes % 6 % Eosinophils % 2 % Basophils % 1 % Neutrophils # 6.0 (1.3-7.7) k/uL Lymphocytes # 2.0 (1.0-4.8) k/uL Monocytes # 0.6 (0-1.0) k/uL Eosinophils # 0.1 (0-0.7) k/uL Basophils # 0.1 (0-0.2) k/uL PT 10.7 (9.0-12.0) sec INR 1.0 (<1.2) APTT 22.4 (22.0-30.0) sec Sodium (137-145) mmol/L Potassium (3.5-5.1) mmol/L Chloride (98-107) mmol/L Carbon Dioxide (22-30) mmol/L Anion Gap mmol/L BUN (9-20) mg/dL Creatinine (0.66-1.25) mg/dL Est GFR (CKD-EPI)AfAm (>60 ml/min/1.73 sqM) Est GFR (CKD-EPI)NonAf (>60 ml/min/1.73 sqM) Glucose (74-99) mg/dL Plasma Lactic Acid [place] (0.7-2.0) mmol/L Calcium (8.4-10.2) mg/dL Total Bilirubin (0.2-1.3) mg/dL AST (17-59) U/L ALT (4-49) U/L Alkaline Phosphatase (38-126) U/L Total Protein (6.3-8.2) g/dL Albumin (3.5-5.0) g/dL Amylase (30-110) U/L Lipase (23-300) U/L Urine Color Yellow Urine Appearance Clear (Clear) Urine pH 5.5 (5.0-8.0) Ur Specific [place] 1.018 (1.001-1.035) Urine Protein Negative (Negative) Urine Glucose (UA) Negative (Negative) Urine Ketones Trace H (Negative) Urine Blood Negative (Negative) Urine Nitrite Negative (Negative) Urine Bilirubin Negative (Negative) Urine Urobilinogen <2.0 (<2.0) mg/dL Ur Leukocyte Esterase Negative (Negative) 09/15/20 09/15/20 Range/Units 09:46 09:46 WBC (3.8-10.6) k/uL RBC (4.30-5.90) m/uL Hgb (13.0-17.5) gm/dL Hct (39.0-53.0) % MCV (80.0-100.0) fL MCH (25.0-35.0) pg MCHC (31.0-37.0) g/dL RDW (11.5-15.5) % Plt Count (150-450) k/uL MPV Neutrophils % % Lymphocytes % % Monocytes % % Eosinophils % % Basophils % % Neutrophils # (1.3-7.7) k/uL Lymphocytes # (1.0-4.8) k/uL Monocytes # (0-1.0) k/uL Eosinophils # (0-0.7) k/uL Basophils # (0-0.2) k/uL PT (9.0-12.0) sec INR (<1.2) APTT (22.0-30.0) sec Sodium 133 L (137-145) mmol/L Potassium 4.1 (3.5-5.1) mmol/L Chloride 108 H (98-107) mmol/L Carbon Dioxide 21 L (22-30) mmol/L Anion Gap 4 mmol/L BUN 14 (9-20) mg/dL Creatinine 0.81 (0.66-1.25) mg/dL Est GFR (CKD-EPI)AfAm >90 (>60 ml/min/1.73 sqM) Est GFR (CKD-EPI)NonAf >90 (>60 ml/min/1.73 sqM) Glucose 148 H (74-99) mg/dL Plasma Lactic Acid [place] 1.1 (0.7-2.0) mmol/L Calcium 9.3 (8.4-10.2) mg/dL Total Bilirubin 0.9 (0.2-1.3) mg/dL AST 52 (17-59) U/L ALT 98 H (4-49) U/L Alkaline Phosphatase 59 (38-126) U/L Total Protein 7.1 (6.3-8.2) g/dL Albumin 3.8 (3.5-5.0) g/dL Amylase 53 (30-110) U/L Lipase 65 (23-300) U/L Urine Color Urine Appearance (Clear) Urine pH (5.0-8.0) Ur Specific [place] (1.001-1.035) Urine Protein (Negative) Urine Glucose (UA) (Negative) Urine Ketones (Negative) Urine Blood (Negative) Urine Nitrite (Negative) Urine Bilirubin (Negative) Urine Urobilinogen (<2.0) mg/dL Ur Leukocyte Esterase (Negative) Disposition Clinical Impression: Acute colitis, Failure of outpatient treatment, Intractable abdominal pain Disposition: ADMITTED IP TO THIS HOSP Condition: Fair Referrals: None,Stated [Primary Care Provider] - 1-2 days
[2020-09-15 09:59] LABS: Basophils # (A) 0.1 k/uL (0-0.2); Basophils % (A) 1 %; Eosinophils # (A) 0.1 k/uL (0-0.7); Eosinophils % (A) 2 %; HCT 48.5 % (39.0-53.0); HGB 16.7 gm/dL (13.0-17.5); Lymphocytes % (A) 22 %; MCH 34.1 pg (25.0-35.0); MCHC 34.4 g/dL (31.0-37.0); MCV 99.1 fL (80.0-100.0); Mean Platelet Volume 7.3; Monocytes # (A) 0.6 k/uL (0-1.0); Monocytes % (A) 6 %; Neutrophils % (A) 67 %; Platelet Count 251 k/uL (150-450); RBC 4.89 m/uL (4.30-5.90); RDW 12.5 % (11.5-15.5)
[2020-09-15 10:01] LABS: Appearance,Urine Clear (Clear); Bilirubin,Urine Negative (Negative); Blood,Urine Negative (Negative); Color,Urine Yellow; Glucose,Urine (UA) Negative (Negative); Ketones,Urine Trace (Negative); Leukocyte Esterase,Urine Negative (Negative); Nitrite,Urine Negative (Negative); PH, Urine 5.5 (5.0-8.0); Protein,Urine Negative (Negative); Specific Gravity,Urine 1.018 (1.001-1.035); Urobilinogen,Urine <2.0 mg/dL (<2.0)
[2020-09-15 10:08] LABS: ALT 98 U/L (4-49); AST 52 U/L (17-59); African American GFR (CKD) >90 (>60 ml/min/1.73 sqM); Albumin 3.8 g/dL (3.5-5.0); Alkaline Phosphatase 59 U/L (38-126); Amylase 53 U/L (30-110); Anion Gap 4 mmol/L; Blood Urea Nitrogen 14 mg/dL (9-20); Calcium 9.3 mg/dL (8.4-10.2); Carbon Dioxide 21 mmol/L (22-30); Chloride 108 mmol/L (98-107); Glucose 148 mg/dL (74-99); Lipase 65 U/L (23-300); Non-African American GFR(CKD) >90 (>60 ml/min/1.73 sqM); Potassium 4.1 mmol/L (3.5-5.1); Sodium 133 mmol/L (137-145); Total Bilirubin 0.9 mg/dL (0.2-1.3); Total Protein 7.1 g/dL (6.3-8.2)
[2020-09-15 10:20] LABS: Partial Thromboplastin Time 22.4 sec (22.0-30.0); Prothrombin Time 10.7 sec (9.0-12.0)
[2020-09-15] MEDS ORDERED: metroNIDAZOLE-NS PMX 500 MG in SALINE 1 100ML.BAG IVPB STA (10:43)
[2020-09-15] MEDS ORDERED: LEVOFLOXACIN 750MG-D5W PMX 750 MG in DEXTROSE/WATER 1 150ML.BAG IVPB STA (10:43)
[2020-09-15] MEDS ORDERED: HYDROmorphone 0.5 MG/0.5 ML SYRINGE IVP STA (10:43)
--- NOTE | 2020-09-15 11:12 | XR ---
EXAMINATION TYPE: XR KUB DATE OF EXAM: 09/15/2020 10:39 AM CLINICAL HISTORY: Generalized abdominal pain TECHNIQUE: Two supine KUB images of the abdomen are obtained. COMPARISON: CT abdomen and pelvis 5 days ago. FINDINGS: Scattered gas is seen in non-distended stomach bubble. Some paucity of small bowel gas. Gas is seen in scattered nondistended small and large bowel loops are noted There is no visceromegaly, p neumoperitoneum, or abnormal calcification appreciated. The lung bases are clear and the osseous stru ctures are intact. IMPRESSION: Overall nonspecific but favor nonobstructive bowel gas pattern.
[2020-09-15] MEDS ORDERED: NALOXONE 0.4 MG/ML 1 ML VIAL IV PRN (11:31)
[2020-09-15] MEDS ORDERED: ONDANSETRON 4 MG/2 ML VIAL IVP PRN (11:31)
[2020-09-15] MEDS: PANTOPRAZOLE 40 MG/10 ML VIAL IV SCH (14:54)
[2020-09-15] MEDS: HYDROmorphone 0.5 MG/0.5 ML SYRINGE IVP PRN ×3 (14:54→21:32)
[2020-09-15] MEDS ORDERED: PROMETHAZINE HCL 6.25 MG/5 ML CUP PO PRN (16:53)
[2020-09-15] MEDS ORDERED: TEMAZEPAM 15 MG CAP PO PRN (16:58)
[2020-09-15] MEDS ORDERED: ALPRAZolam 0.25 MG TAB PO PRN (16:58)
--- NOTE | 2020-09-15 18:38 | HP ---
HISTORY AND PHYSICAL DATE OF SERVICE: 09/15/2020 CHIEF COMPLAINT: Abdominal pain. HISTORY OF PRESENT ILLNESS: This 45-year-old gentleman with a past medical history of multiple medical problems including COPD, GERD, hypertension, history of diverticulitis, anxiety, bipolar depression not being followed by any primary physician in the outpatient setting locally. according to him. The patient was initially admitted with diffuse colitis and severe abdominal pain a few days ago but subsequently patient left the hospital against medical advice and currently the patient has severe abdominal pain which is felt in the lower part of the abdomen which is cramping in nature. The patient came to [facility] and was admitted for further evaluation and treatment. The plain x-ray of the abdomen showed nonspecific changes. There is no history of fever, rigors, headache, loss of consciousness, seizures. PAST MEDICAL HISTORY: COPD, GERD, hypertension, history of diverticulosis, anxiety, bipolar, depression. HOME MEDICATIONS: Tizanidine, Phenergan, Prilosec, Singulair, Cozaar, loratadine, [place], Symbicort. ALLERGIES: PENICILLIN. FAMILY HISTORY: History of colon cancer in the family. SOCIAL HISTORY: History of THC, previous smoking. REVIEW OF SYSTEMS: ENT No history of diminished hearing or vision. CARDIOVASCULAR No angina or palpitations. RESPIRATORY As mentioned earlier. GI As mentioned earlier. No dysuria or hematuria. NERVOUS No numbness or weakness. ALLERGY/IMMUNOLOGY No asthma or hayfever. MUSCULOSKELETAL As mentioned earlier. HEMATOLOGY/ONCOLOGY Negative. ENDOCRINE No history of diabetes or hypothyroidism. CONSTITUTIONAL As mentioned earlier. DERMATOLOGY Negative. RHEUMATOLOGY Negative, PSYCHIATRY As mentioned earlier. PHYSICAL EXAMINATION: Alert and oriented, pulse 64, blood pressure 143/95, respirations 16, temperature 98 degrees, pulse ox 98% on room air. HEENT: Conjunctivae normal. Oral mucosa moist. NECK: No jugular venous distention. No lymph node enlargement. CARDIOVASCULAR: S1, S2, muffled. No S3, no S4, RESPIRATORY: Diminished breath sounds at the bases. No rhonchi, no crackles. ABDOMEN: Soft. Mild diffuse tenderness present. No guarding. No rigidity. No mass palpable. LEGS: No edema, no swelling. NERVOUS SYSTEM: Higher functions mentioned earlier. Moves all four limbs. No focal motor or sensory deficits. LYMPHATICS: No lymph node in neck or axilla. SKIN: No rash. JOINTS: No active deforming arthropathy. LABS: CBC within normal limits. Sodium 133. Other labs are noted. ASSESSMENT: 1. Abdominal pain with acute diverticulitis with failure of outpatient treatment. 2. History of noncompliance. 3. Hyponatremia. 4. Elevated ALT. 5. Chronic obstructive pulmonary disease. 6. Gastroesophageal reflux disease. 7. Hypertension. 8. History of colitis. 9. History of degenerative joint disease. 10.History of hepatitis C. 11.History of anxiety, bipolar depression, schizophrenia. 12.History of nicotine dependence. 13.Obesity with body mass of 32.8. 14.FULL CODE. RECOMMENDATIONS AND DISCUSSION: This 45-year-old gentleman who presented with multiple complex medical, at this time I recommend to continue current management, broad-spectrum IV antibiotics and symptomatic treatment for the pain. Otherwise, I would recommend Gastroenterology evaluation. Resume the home medications. Guarded prognosis because of multiple complex medical history. DVT prophylaxis. Also recommend the patient follow up with primary physician closely. Further recommendations to follow. MMODL / IJN: [id number] / YANET
[2020-09-15] MEDS: SYMBICORT 160-4.5 MCG INHALER INHALATION SCH (20:05)
[2020-09-15] MEDS: SODIUM CHLORIDE 0.9% 1,000 ML IV SCH ×2 (20:38→20:44)
[2020-09-15] MEDS: metroNIDAZOLE-NS PMX 500 MG in SALINE 1 100ML.BAG IVPB SCH (20:38)
[2020-09-15] MEDS: MONTELUKAST 10 MG TAB PO SCH (20:39)
[2020-09-15] MEDS: tiZANidine 4 MG TAB PO SCH (20:39)
[2020-09-15] MEDS: HEPARIN SODIUM,PORCINE 5,000 UNIT/ML 1 ML VIAL SQ SCH (20:39)
[2020-09-16] MEDS: HYDROmorphone 0.5 MG/0.5 ML SYRINGE IVP PRN ×5 (00:58→20:20)
[2020-09-16] MEDS: SODIUM CHLORIDE 0.9% 1,000 ML IV SCH ×2 (03:16→08:35)
[2020-09-16] MEDS: HYDROcodone/APAP 10-325MG 1 EACH TAB PO PRN ×2 (03:19→12:03)
[2020-09-16] MEDS: metroNIDAZOLE-NS PMX 500 MG in SALINE 1 100ML.BAG IVPB SCH ×3 (04:24→20:21)
[2020-09-16 06:57] LABS: Basophils % (A) 0 %; Eosinophils # (A) 0.1 k/uL (0-0.7); Eosinophils % (A) 2 %; HCT 44.8 % (39.0-53.0); HGB 14.6 gm/dL (13.0-17.5); Lymphocytes # (A) 2.4 k/uL (1.0-4.8); Lymphocytes % (A) 39 %; MCH 33.4 pg (25.0-35.0); MCHC 32.6 g/dL (31.0-37.0); MCV 102.6 fL (80.0-100.0); Macrocytosis Slight; Mean Platelet Volume 7.5; Monocytes # (A) 0.5 k/uL (0-1.0); Monocytes % (A) 9 %; Neutrophils % (A) 48 %; Platelet Count 216 k/uL (150-450); RBC 4.37 m/uL (4.30-5.90); RDW 12.4 % (11.5-15.5); WBC 6.3 k/uL (3.8-10.6)
[2020-09-16] MEDS: SYMBICORT 160-4.5 MCG INHALER INHALATION SCH ×2 (07:07→20:09)
[2020-09-16 07:10] LABS: African American GFR (CKD) >90 (>60 ml/min/1.73 sqM); Anion Gap 1 mmol/L; Blood Urea Nitrogen 12 mg/dL (9-20); Calcium 8.2 mg/dL (8.4-10.2); Carbon Dioxide 27 mmol/L (22-30); Chloride 107 mmol/L (98-107); Glucose 96 mg/dL (74-99); Non-African American GFR(CKD) >90 (>60 ml/min/1.73 sqM); Sodium 135 mmol/L (137-145)
[2020-09-16] MEDS ORDERED: PANTOPRAZOLE 40 MG TABLET PO SCH (07:30)
[2020-09-16 08:10] VITALS: RESP 16
[2020-09-16] MEDS: HEPARIN SODIUM,PORCINE 5,000 UNIT/ML 1 ML VIAL SQ SCH ×2 (08:36→20:21)
[2020-09-16] MEDS: LORATADINE 10 MG TAB PO SCH (08:37)
[2020-09-16] MEDS: LOSARTAN 25 MG TAB PO SCH (08:37)
[2020-09-16] MEDS: PANTOPRAZOLE 40 MG/10 ML VIAL IV SCH (08:38)
[2020-09-16] MEDS ORDERED: THIAMINE 100 MG/ML 2 ML VIAL IM STA (12:52)
[2020-09-16] MEDS ORDERED: LORazepam 2 MG/ML INJ IV PRN ×3 (12:52)
--- NOTE | 2020-09-16 15:19 | PN ---
PROGRESS NOTE DATE OF SERVICE: 09/16/2020 This 45-year-old gentleman who was admitted with abdominal pain, acute diverticulitis is being closely monitored. No chest pain. No palpitations. Patient IV antibiotics. Gastroenterology evaluation in progress. The patient also had significant withdrawal symptoms from alcohol also. The white count is today at 6.3. No chest pain or palpitation. PHYSICAL EXAMINATION: On exam, alert and oriented x3. Pulse 59, blood pressure 157/89, respirations 16, temperature 98.1, pulse ox 97% on room air. HEENT: Conjunctivae normal. NECK: No jugular venous distention. CARDIOVASCULAR: S1, S2 muffled. RESPIRATORY: Breath sounds diminished at the bases. No rhonchi, no crackles. ABDOMEN: Soft. Mild diffuse discomfort. No mass palpable. LEGS: No edema. No swelling. NERVOUS SYSTEM: No focal deficits. LABS: Sodium 135. ASSESSMENT: 1. Abdominal pain with acute diverticulitis with failure of outpatient treatment. 2. Alcohol withdrawal symptoms and acute delirium tremens. 3. History of noncompliance. 4. Hyponatremia. 5. Social stressors and depression. 6. Elevated ALT. 7. Chronic obstructive pulmonary disease. 8. Gastroesophageal reflux disease. 9. Hypertension. 10.History of colitis. 11.History of degenerative joint disease. 12.History of hepatitis C. 13.History of anxiety, bipolar, depression, schizophrenia. 14.History of nicotine dependence. 15.Obesity with body mass of 32.8. 16.FULL CODE. RECOMMENDATIONS AND DISCUSSION: I recommend to continue current medications. Continue symptomatic treatment. Continue with broad spectrum IV antibiotics. CIWA protocol. Closely follow. Guarded prognosis because of multiple complex medical conditions. Further recommendations to follow. MMODL / IJN: [id number] /
[2020-09-16] MEDS ORDERED: LEVOFLOXACIN 750MG-D5W PMX 750 MG in DEXTROSE/WATER 1 150ML.BAG IVPB SCH (16:00)
[2020-09-16] MEDS: THIAMINE 100 MG TAB PO SCH (17:32)
[2020-09-16] MEDS: MONTELUKAST 10 MG TAB PO SCH (20:21)
[2020-09-16] MEDS: tiZANidine 4 MG TAB PO SCH (20:22)
[2020-09-17] MEDS: HYDROmorphone 0.5 MG/0.5 ML SYRINGE IVP PRN ×2 (00:11→04:25)
[2020-09-17] MEDS: metroNIDAZOLE-NS PMX 500 MG in SALINE 1 100ML.BAG IVPB SCH (04:26)
[2020-09-17] MEDS: SYMBICORT 160-4.5 MCG INHALER INHALATION SCH (07:45)
[2020-09-17] MEDS: HEPARIN SODIUM,PORCINE 5,000 UNIT/ML 1 ML VIAL SQ SCH (08:11)
[2020-09-17] MEDS: LORATADINE 10 MG TAB PO SCH (08:11)
[2020-09-17] MEDS: PANTOPRAZOLE 40 MG/10 ML VIAL IV SCH (08:11)
[2020-09-17] MEDS: HYDROcodone/APAP 10-325MG 1 EACH TAB PO PRN (08:12)
[2020-09-17] MEDS: THIAMINE 100 MG TAB PO SCH (08:12)
[2020-09-17] MEDS: LOSARTAN 25 MG TAB PO SCH (08:12)
[2020-09-17 08:23] LABS: Basophils % (A) 0 %; Eosinophils # (A) 0.1 k/uL (0-0.7); Eosinophils % (A) 2 %; HCT 47.5 % (39.0-53.0); HGB 15.9 gm/dL (13.0-17.5); Lymphocytes # (A) 1.9 k/uL (1.0-4.8); Lymphocytes % (A) 28 %; MCHC 33.5 g/dL (31.0-37.0); MCV 101.5 fL (80.0-100.0); Mean Platelet Volume 7.6; Monocytes # (A) 0.6 k/uL (0-1.0); Monocytes % (A) 9 %; Neutrophils # (A) 3.8 k/uL (1.3-7.7); Neutrophils % (A) 58 %; Platelet Count 225 k/uL (150-450); RBC 4.68 m/uL (4.30-5.90); RDW 12.4 % (11.5-15.5); WBC 6.6 k/uL (3.8-10.6)
[2020-09-17 08:35] LABS: African American GFR (CKD) >90 (>60 ml/min/1.73 sqM); Anion Gap 4 mmol/L; Blood Urea Nitrogen 9 mg/dL (9-20); Calcium 9.1 mg/dL (8.4-10.2); Carbon Dioxide 25 mmol/L (22-30); Chloride 105 mmol/L (98-107); Glucose 95 mg/dL (74-99); Non-African American GFR(CKD) >90 (>60 ml/min/1.73 sqM); Sodium 134 mmol/L (137-145)
[2020-09-17 08:50] VITALS: BP 164/93; PULSE 68; TEMP 97.5
--- NOTE | 2020-09-17 09:10 | P.PN ---
Subjective Progress Note Date: 09/17/20 Principal diagnosis: Colitis This is a 45-year-old -[place] male who came in for abdominal pain. Patient states he has a history of being diagnosed with ulcerative colitis [place] He has had no follow-up, and or medications. He had a recent EGD/colonoscopy in 2018 which showed antral gastritis, hiatal hernia and esophagitis, colonoscopy report was normal. Patient is currently on Levaquin and Flagyl. He is stating that he is feeling much better. He denies any nausea, vomiting, abdominal pain, diarrhea, or blood in the stool or per rectum. He denies any fevers or chills through the night. Is tolerating his full liquid diet. Objective - Vital Signs Vital signs: Vital Signs Temp 97.5 F L 09/17/20 08:49 Pulse 68 09/17/20 08:49 Resp 16 09/17/20 08:49 BP 164/93 09/17/20 08:49 Pulse Ox 99 09/17/20 08:49 Intake & Output 09/16/20 09/17/20 09/17/20 18:59 06:59 18:59 Intake Total 300 240 Balance 300 240 Intake: Intake, IV Titration 100 Amount metroNIDAZOLE-NS PMX 500 100 mg In Saline 1 100ml.bag @ 100 mls/hr IVPB Q8H [facility] Rx#:[id number] Oral 200 240 Other: Voiding Method Toilet Toilet Toilet # Voids 2 1 1 - Exam General appearance: The patient is alert, oriented, in no acute distress. HET: Head is normocephalic and atraumatic. Conjunctiva pink. Sclera anicteric. Neck: Supple without lymphadenopathy. Abdomen: Soft, nontender, nondistended with bowel sounds. No guarding or rigidity. Extremities: Normal skin color and turgor. No pedal edema Neurological: No focal deficits. Alert and oriented 3. - Labs CBC & Chem 7: 09/17/20 07:57 09/17/20 07:57 Labs: Abnormal Lab Results - Last 24 Hours (Table) 09/17/20 09/17/20 Range/Units 07:57 07:57 MCV 101.5 H (80.0-100.0) fL Sodium 134 L (137-145) mmol/L Microbiology - Last 24 Hours (Table) 09/15/20 11:21 Blood Culture - Preliminary Blood No Growth after 24 hours Assessment and Plan Assessment: This is a 45-year-old -[place] male who came in for abdominal pain. Patient states he has a history of being diagnosed with ulcerative colitis [place] He has had no follow-up, and or medications. He had a recent EGD/colonoscopy in 2018 which showed antral gastritis, hiatal hernia and esophagitis, colonoscopy report was normal. Patient is currently on Levaquin and Flagyl. He is stating that he is feeling much better. (1) Acute colitis Current Visit: Yes Status: Acute Code(s): K52.9 - NONINFECTIVE GASTROENTERITIS AND COLITIS, UNSPECIFIED SNOMED Code(s): 34827078 (2) Intractable abdominal pain Current Visit: Yes Status: Acute Code(s): R10.9 - UNSPECIFIED ABDOMINAL PAIN SNOMED Code(s): 06836975 Plan: 1. Supportive care 2. Continue with Levaquin and Flagyl 3. Advance diet to low fiber diet 4. Patient to follow-up with gastroenterology in the next 4 weeks Thank you for this consultation Dr. Maria Fernanda Leung I agree with the dictator's note, documented as a scribe by Bee Mcleod.
--- NOTE | 2020-09-18 13:47 | P.DS ---
Providers Date of admission: 09/17/20 09:20 Expected date of discharge: 09/17/20 Attending physician: Stanley Mckenna Consults: 09/15/20 11:19 Consult Physician Urgent Consulting Provider: Flaco Merino Consult Reason/Comments: colitis, severe abd pain Do you want consulting provider notified?: Yes Primary care physician: Stated None Hospital Course: Final diagnosis Abdominal pain with acute diverticulitis with failure of outpatient treatment Alcohol withdrawal symptoms and acute delirium tremens History of noncompliance hyponatremia Social stressors and depression Elevated ALT Chronic obstructive pulmonary disease Gastroesophageal reflux disease hypertension History of colitis history of degenerative joint disease History of hepatitis C history of anxiety, bipolar, depression, schizophrenia History of nicotine dependence Obesity with a body mass index of 32.8 Full code Discharge disposition Patient is being discharged in a stable condition with guarded prognosis to home. Patient will follow-up with Dr. Tavarez in the outpatient setting upon discharge. Patient is to continue with oral antibiotics in the form of Flagyl along with Levaquin next 5 days to complete the course. Patient also instructed to follow-up with GI Dr. Leung in the outpatient setting. Total time taken is greater than 35 minutes. Hospital course This is a 45-year-old male who was recently admitted with abdominal pain, acute diverticulitis and was being closely monitored. Patient was seen and evaluated by gastroenterology. Patient was initiated on IV antibiotics and will continue with oral antibiotics in the outpatient setting for the next 5 days to complete the course. Patient also instructed to follow-up with GI in the outpatient setting as scheduled. Patient does have a history of alcohol use and was being closely monitored for withdrawal symptoms. Patient was maintained on CIWA protocol. Patient instructed to continue to avoid alcohol use. Patient was on clear liquids and instructed to advance slowly as tolerated. Patient instructed to follow-up with Dr. Tavarez upon discharge. Currently no reports of chest pain, shortness of breath, or palpitations. Patient is afebrile. No reports of nausea or vomiting and patient is tolerating diet. Patient will be discharged home today. Guarded prognosis. On exam vital signs are stable. Cardio S1, S2 are muffled. Respiratory system shows diminished breath sounds at the bases with no wheezing or rhonchi noted. Abdomen is soft and nontender. Nervous system shows no focal deficits. Please refer to medication reconciliation sheet for a list of medications. Patient Condition at Discharge: Fair Plan - Discharge Summary Discharge Rx Participant: No New Discharge Prescriptions: New LORazepam [Ativan] 1 mg PO TID 3 Days #9 tab metroNIDAZOLE [Flagyl] 500 mg PO TID 5 Days #15 tab Levofloxacin [Levaquin] 750 mg PO DAILY 5 Days #5 tab Thiamine [Vitamin B-1] 100 mg PO BID-W/MEALS 30 Days #60 tab Continue Hydrocodone/Acetaminophen [[place] 10-325] 1 tab PO TID PRN PRN Reason: Pain tiZANidine HCL 4 mg PO HS Montelukast Sodium [Singulair] 10 mg PO HS Promethazine 6.25MG/5Ml [Phenergan Syrup] 12.5 mg PO Q8H PRN PRN Reason: Nausea or Cough Omeprazole [PriLOSEC] 20 mg PO DAILY Losartan Potassium [Cozaar] 25 mg PO DAILY Budesonide/Formoterol Fumarate [Symbicort 160-4.5 Mcg Inhaler] 2 puff INHALATION RT-BID Loratadine 10 mg PO DAILY Discharge Medication List Hydrocodone/Acetaminophen [[place] 10-325] 1 tab PO TID PRN 04/24/16 [History] Budesonide/Formoterol Fumarate [Symbicort 160-4.5 Mcg Inhaler] 2 puff INHALATION RT-BID 09/10/20 [History] Loratadine 10 mg PO DAILY 09/10/20 [History] Losartan Potassium [Cozaar] 25 mg PO DAILY 09/10/20 [History] Montelukast Sodium [Singulair] 10 mg PO HS 09/10/20 [History] Omeprazole [PriLOSEC] 20 mg PO DAILY 09/10/20 [History] Promethazine 6.25MG/5Ml [Phenergan Syrup] 12.5 mg PO Q8H PRN 09/10/20 [History] tiZANidine HCL 4 mg PO HS 09/10/20 [History] LORazepam [Ativan] 1 mg PO TID 3 Days #9 tab 09/17/20 [Rx] Levofloxacin [Levaquin] 750 mg PO DAILY 5 Days #5 tab 09/17/20 [Rx] Thiamine [Vitamin B-1] 100 mg PO BID-W/MEALS 30 Days #60 tab 09/17/20 [Rx] metroNIDAZOLE [Flagyl] 500 mg PO TID 5 Days #15 tab 09/17/20 [Rx] Follow up Appointment(s)/Referral(s): Selina Leung MD [STAFF PHYSICIAN] - 10/17/20 4:15 pm (2-4 weeks) None,Stated [Primary Care Provider] - 1-2 Days (Please establish with a pcp and schedule appointment.) Patient Instructions/Handouts: Colitis (ED) Activity/Diet/Wound Care/Special Instructions: Activity Limited until follow-up Continue with clear to full liquids and slowly advance as tolerated Must continue to avoid alcohol Continue with antibiotics until finished Follow-up with primary care provider upon discharge Follow-up with GI in the outpatient setting as discussed Discharge Disposition: HOME SELF-CARE
== END 2020-09-17 12:13 | disposition home or self-care (01) | DRG 392 ==
LOC: EC 09:11 → 1SOBS 11:55 → OBSVTOIN 09-17 09:20
PROVIDERS: ADMIT Hospitalist; ATTEND Hospitalist
DX: K57.92 Diverticulitis of intestine, part unspecified, without perforation or abscess without bleeding (principal); K51.90 Ulcerative colitis, unspecified, without complications; F10.231 Alcohol dependence with withdrawal delirium; F31.30 Bipolar disorder, current episode depressed, mild or moderate severity, unspecified; E87.1 Hypo-osmolality and hyponatremia; J44.9 Chronic obstructive pulmonary disease, unspecified; I10 Essential (primary) hypertension; K21.9 Gastro-esophageal reflux disease without esophagitis; F17.200 Nicotine dependence, unspecified, uncomplicated; B19.20 Unspecified viral hepatitis C without hepatic coma; E66.9 Obesity, unspecified; M19.90 Unspecified osteoarthritis, unspecified site; Z68.32 Body mass index [BMI] 32.0-32.9, adult; Z91.19 Patient's noncompliance with other medical treatment and regimen; Z80.0 Family history of malignant neoplasm of digestive organs; Z79.51 Long term (current) use of inhaled steroids; Z88.0 Allergy status to penicillin; Z98.890 Other specified postprocedural states
CPT/HCPCS: 36415; 74018; 80048; 80053; 81003; 82150; 83605; 83690; 85025; 85610; 85652; 85730; 86140; 87040; 94640; 96361; 96365; 96375; 96376; 99285

== ENCOUNTER 2020-10-24 10:54 | Emergency (ER) | payer OTHER ==
[2020-10-24 11:00] VITALS: RESP 22; TEMP 97.6
[2020-10-24] MEDS ORDERED: ONDANSETRON 4 MG/2 ML VIAL IVP STA (11:23)
[2020-10-24] MEDS ORDERED: SODIUM CHLORIDE 0.9% 500 ML 500 ML IV STA (11:23)
[2020-10-24] MEDS ORDERED: SODIUM CHLORIDE 0.9% 1,000 ML IV STA (11:23)
[2020-10-24] MEDS ORDERED: FAMOTIDINE 20 MG/2 ML VIAL IV STA (11:23)
[2020-10-24] MEDS ORDERED: HYDROmorphone 0.5 MG/0.5 ML SYRINGE IVP STA (11:24)
[2020-10-24 11:44] LABS: Basophils % (A) 0 %; Eosinophils # (A) 0.1 k/uL (0-0.7); Eosinophils % (A) 1 %; HGB 16.8 gm/dL (13.0-17.5); Lymphocytes # (A) 2.4 k/uL (1.0-4.8); Lymphocytes % (A) 24 %; MCHC 33.7 g/dL (31.0-37.0); MCV 100.9 fL (80.0-100.0); Mean Platelet Volume 7.4; Monocytes # (A) 0.7 k/uL (0-1.0); Monocytes % (A) 7 %; Neutrophils # (A) 6.7 k/uL (1.3-7.7); Neutrophils % (A) 66 %; Platelet Count 219 k/uL (150-450); RBC 4.95 m/uL (4.30-5.90); RDW 13.1 % (11.5-15.5); WBC 10.2 k/uL (3.8-10.6)
[2020-10-24 11:52] LABS: ALT 111 U/L (4-49); AST 74 U/L (17-59); African American GFR (CKD) >90 (>60 ml/min/1.73 sqM); Albumin 4.6 g/dL (3.5-5.0); Alkaline Phosphatase 75 U/L (38-126); Amylase 109 U/L (30-110); Anion Gap 9 mmol/L; Blood Urea Nitrogen 14 mg/dL (9-20); Calcium 9.6 mg/dL (8.4-10.2); Carbon Dioxide 20 mmol/L (22-30); Chloride 107 mmol/L (98-107); Glucose 135 mg/dL (74-99); Lipase 155 U/L (23-300); Non-African American GFR(CKD) 81 (>60 ml/min/1.73 sqM); Potassium 4.4 mmol/L (3.5-5.1); Sodium 136 mmol/L (137-145); Total Bilirubin 0.5 mg/dL (0.2-1.3); Total Protein 7.7 g/dL (6.3-8.2)
--- NOTE | 2020-10-24 11:59 | ED ---
Abdominal Pain HPI - General Chief Complaint: Abdominal Pain Stated Complaint: abd pain, vomiting Time Seen by Provider: 10/24/20 11:10 Source: patient Mode of arrival: wheelchair Limitations: no limitations - History of Present Illness Initial Comments: 45-year-old male with history of ulcerative colitis presents to emergency Department with chief complaint of abdominal pain. Patient reports last night he ate barbecued chicken and developed epigastric abdominal pain along with multiple episodes of nonbilious and nonbloody vomiting. Patient reports it is common for him to have bloody diarrhea but nothing recently. Patient reports he was recently admitted for the same chief complaint here but was not able to follow-up outpatient with a GI doctor due to insurance purposes. He denies any chest pain or shortness of breath. Denies any urinary symptoms.does have history of alcohol abuse. - Related Data Home Medications Medication Instructions Recorded Confirmed Hydrocodone/Acetaminophen [[place] 1 tab PO TID PRN 04/24/16 10/24/20 10-325] Budesonide/Formoterol Fumarate 2 puff INHALATION RT-BID 09/10/20 10/24/20 [Symbicort 160-4.5 Mcg Inhaler] Loratadine 10 mg PO DAILY 09/10/20 10/24/20 Losartan Potassium [Cozaar] 25 mg PO DAILY 09/10/20 10/24/20 Montelukast Sodium [Singulair] 10 mg PO HS 09/10/20 10/24/20 Omeprazole [PriLOSEC] 20 mg PO DAILY 09/10/20 10/24/20 tiZANidine HCL 4 mg PO HS 09/10/20 10/24/20 Previous Rx's Medication Instructions Recorded Metoclopramide [Reglan] 10 mg PO TID PRN #15 tab 10/24/20 Ondansetron Odt [Zofran Odt] 4 mg PO Q8HR PRN #14 tab 10/24/20 Allergies Allergy/AdvReac Type Severity Reaction Status Date / Time Penicillins Allergy Anaphylaxis Verified 10/24/20 12:04 Review of Systems ROS Statement: Those systems with pertinent positive or pertinent negative responses have been documented in the HPI. ROS Other: All systems not noted in ROS Statement are negative. Past Medical History Past Medical History: COPD, GERD/Reflux, Hypertension Additional Past Medical History / Comment(s): HX DIVERTICULITIS, COLITIS, DDD, BULDGING DISCS WITH BACK PAIN- USES CANE., HEPATITIS C. History of Any Multi-Drug Resistant Organisms: None Reported Past Surgical History: No Surgical Hx Reported Additional Past Surgical History / Comment(s): COLONOSCOPY Past Anesthesia/Blood Transfusion Reactions: No Reported Reaction Past Psychological History: Anxiety, Bipolar, Depression, Schizophrenia Smoking Status: Current some day smoker Past Alcohol Use History: Occasional Past Drug Use History: Marijuana - Past Family History Mother Family Medical History: Cancer Additional Family Medical History / Comment(s): COLON CANCER General Exam Limitations: no limitations General appearance: alert, in no apparent distress, obese Head exam: Present: atraumatic, normocephalic, normal inspection Eye exam: Present: normal appearance, PERRL, EOMI Pupils: Present: normal accommodation ENT exam: Present: normal exam, normal oropharynx, mucous membranes moist Neck exam: Present: normal inspection, full ROM. Absent: tenderness Respiratory exam: Present: normal lung sounds bilaterally. Absent: respiratory distress Cardiovascular Exam: Present: regular rate, normal rhythm, normal heart sounds GI/Abdominal exam: Present: soft, tenderness (epigastrictenderness). Absent: distended Extremities exam: Present: normal inspection, full ROM, normal capillary refill. Absent: tenderness Back exam: Present: normal inspection, full ROM. Absent: tenderness, CVA tenderness (L) Neurological exam: Present: alert, oriented X3 Psychiatric exam: Present: normal affect, normal mood Skin exam: Present: warm, dry, intact, normal color Course Vital Signs 10/24/20 10/24/20 10:57 14:17 Temperature 97.6 F 97.6 F Pulse Rate 62 79 Respiratory 22 22 Rate Blood Pressure 147/95 137/80 O2 Sat by Pulse 99 99 Oximetry Medical Decision Making - Medical Decision Making 45-year-old male presents to emergency Department chief complaint of abdominal pain. On physical examination, epigastric abdominal tenderness. Status is typical for him whenever he has colitis flare. CBC unremarkable. CMP reveals mild transaminitis. Patient was given Zofran, Reglan, Benadryl, Dilaudid, IV fluids. KUB revealed no signs of free air. On reevaluation, patient reports improvement of symptoms. He has an appointment scheduled to see Dr. Leung. He was discharged with Tylenol 3 starter pack and Reglan which she was advised to take the Zofran. Return parameters discussed the patient was understanding and agreeable. Case discussed withDr. Stallings - Lab Data Result diagrams: 10/24/20 11:26 10/24/20 11:26 Lab Results 10/24/20 10/24/20 10/24/20 Range/Units 11:23 11:26 11:26 WBC 10.2 (3.8-10.6) k/uL RBC 4.95 (4.30-5.90) m/uL Hgb 16.8 (13.0-17.5) gm/dL Hct 50.0 (39.0-53.0) % MCV 100.9 H (80.0-100.0) fL MCH 34.0 (25.0-35.0) pg MCHC 33.7 (31.0-37.0) g/dL RDW 13.1 (11.5-15.5) % Plt Count 219 (150-450) k/uL MPV 7.4 Neutrophils % 66 % Lymphocytes % 24 % Monocytes % 7 % Eosinophils % 1 % Basophils % 0 % Neutrophils # 6.7 (1.3-7.7) k/uL Lymphocytes # 2.4 (1.0-4.8) k/uL Monocytes # 0.7 (0-1.0) k/uL Eosinophils # 0.1 (0-0.7) k/uL Basophils # 0.0 (0-0.2) k/uL Sodium 136 L (137-145) mmol/L Potassium 4.4 (3.5-5.1) mmol/L Chloride 107 (98-107) mmol/L Carbon Dioxide 20 L (22-30) mmol/L Anion Gap 9 mmol/L BUN 14 (9-20) mg/dL Creatinine 1.08 (0.66-1.25) mg/dL Est GFR (CKD-EPI)AfAm >90 (>60 ml/min/1.73 sqM) Est GFR (CKD-EPI)NonAf 81 (>60 ml/min/1.73 sqM) Glucose 135 H (74-99) mg/dL Calcium 9.6 (8.4-10.2) mg/dL Total Bilirubin 0.5 (0.2-1.3) mg/dL AST 74 H (17-59) U/L ALT 111 H (4-49) U/L Alkaline Phosphatase 75 (38-126) U/L Total Protein 7.7 (6.3-8.2) g/dL Albumin 4.6 (3.5-5.0) g/dL Amylase 109 (30-110) U/L Lipase 155 (23-300) U/L Urine Color Yellow Urine Appearance Clear (Clear) Urine pH 5.5 (5.0-8.0) Ur Specific [place] 1.018 (1.001-1.035) Urine Protein Negative (Negative) Urine Glucose (UA) Negative (Negative) Urine Ketones Trace H (Negative) Urine Blood Negative (Negative) Urine Nitrite Negative (Negative) Urine Bilirubin Negative (Negative) Urine Urobilinogen <2.0 (<2.0) mg/dL Ur Leukocyte Esterase Negative (Negative) Disposition Clinical Impression: Abdominal pain, Nausea & vomiting Disposition: HOME SELF-CARE Condition: Stable Instructions (If sedation given, give patient instructions): Abdominal Pain (ED) Additional Instructions: take Reglan/metoclopramide with Benadryl. Take Zofran in addition if necessary. Drink plenty of fluids. Follow-up with your GI specialist. Return to emergency department if symptoms worsen. Prescriptions: Metoclopramide [Reglan] 10 mg PO TID PRN #15 tab PRN Reason: GERD Ondansetron Odt [Zofran Odt] 4 mg PO Q8HR PRN #14 tab PRN Reason: Nausea Is patient prescribed a controlled substance at d/c from ED?: No Referrals: None,Stated [Primary Care Provider] - 1-2 days Selina Leung MD [STAFF PHYSICIAN] - 1-2 days Time of Disposition: 14:06
[2020-10-24] MEDS ORDERED: HYDROmorphone 1 MG/ML 1 ML SYRINGE IVP STA (12:32)
[2020-10-24] MEDS ORDERED: METOCLOPRAMIDE 5 MG/ML 2 ML VIAL IVP STA (12:32)
[2020-10-24] MEDS ORDERED: diphenhydrAMINE 50 MG/ML 1 ML VIAL IVP STA (12:32)
--- NOTE | 2020-10-24 13:33 | XR ---
EXAMINATION TYPE: XR KUB DATE OF EXAM: 10/24/2020 COMPARISON: 09/15/2020 INDICATION: Abdominal pain and vomiting, history of colitis TECHNIQUE: Single view abdomen upright view FINDINGS: Scattered air-fluid levels are within the abdomen including ascending colon. Differential air-fluid l evels are not evident. No dilated small bowel loops are evident. Psoas margins are normal. No organomegaly is present. IMPRESSION: 1. Nonspecific bowel gas pattern.
[2020-10-24] MEDS ORDERED: ACET/COD 300 MG/30 MG STARTER PACK 6 TAB BTL PO STA (14:05)
[2020-10-24 14:09] LABS: Appearance,Urine Clear (Clear); Bilirubin,Urine Negative (Negative); Blood,Urine Negative (Negative); Color,Urine Yellow; Glucose,Urine (UA) Negative (Negative); Ketones,Urine Trace (Negative); Leukocyte Esterase,Urine Negative (Negative); Nitrite,Urine Negative (Negative); PH, Urine 5.5 (5.0-8.0); Protein,Urine Negative (Negative); Specific Gravity,Urine 1.018 (1.001-1.035); Urobilinogen,Urine <2.0 mg/dL (<2.0)
[2020-10-24 14:20] VITALS: BP 137/80; PULSE 79
== END 2020-10-24 14:22 | disposition home or self-care (01) ==
LOC: EC 10:54
DX: R10.9 Unspecified abdominal pain (principal); R11.2 Nausea with vomiting, unspecified; R10.816 Epigastric abdominal tenderness; R74.01 Elevation of levels of liver transaminase levels; J44.9 Chronic obstructive pulmonary disease, unspecified; I10 Essential (primary) hypertension; K21.9 Gastro-esophageal reflux disease without esophagitis; F17.200 Nicotine dependence, unspecified, uncomplicated; Z79.51 Long term (current) use of inhaled steroids; Z79.899 Other long term (current) drug therapy; Z88.0 Allergy status to penicillin
CPT/HCPCS: 36415; 74018; 80053; 81003; 82150; 83690; 85025; 96361; 96374; 96375; 96376; 99284